=== PATIENT | male | born 1970 | race Caucasian/White ===

== ENCOUNTER → 2022-07-22 | Outpatient (CLI) | payer BC, SELFPAY | END | disposition home or self-care (01) | LOC: SL 20:37 | PROVIDERS: PCP Nurse Practitioner Family; Referring Provider Nurse Practitioner Acute Care; Visit Provider Nurse Practitioner Acute Care | DX: G47.33 Obstructive sleep apnea (adult) (pediatric) (principal) | CPT/HCPCS: 95811 ==

== ENCOUNTER 2022-12-09 16:01 | Emergency (ER) | payer BC, SELFPAY ==
[2022-12-09 16:02] VITALS: BP 162/79; PULSE 101; RESP 16; TEMP 36.1; O2SAT 95; BMI 55.5
--- NOTE | 2022-12-09 16:17 | EDS_ITS ---
HPI <JESS Diamond - Last Filed: 12/09/22 16:23> History of Present Illness Chief Complaint: Abd Pain Narrative Narrative: 52-year-old male states he had an umbilical hernia that popped in and out for years but is becoming more frequent Jayy issue. Earlier today it popped out and felt golf ball sized and he felt nauseated. No vomiting. He is having normal daily to every other day bowel movements. He states that pop back in but he is here for evaluation. He saw surgeon a couple years ago but they would not do surgery without a COVID-vaccine so he declined. PFSH <JESS Diamond - Last Filed: 12/09/22 16:23> [facility] Medical History Abnormal biopsy result Home Medications NK 12/09/22 [History Last Taken Unknown] Allergy/AdvReac Type Severity Reaction Status Date / Time codeine AdvReac Severe Vomiting Verified 12/09/22 16:01 Family History Mother Cancer LUNG Diabetes [facility] acquired PNA Aunt CAD (coronary artery disease) Heart disease Social History adopted: No household members: spouse and other details: sister in law housing: house current occupational status: employed Smoking Status: Never smoker second hand exposure: Yes alcohol intake: former year quit: 1996 substance use type: does not use ROS <JESS Diamond Last Filed: 12/09/22 16:23> ROS ED ROS Narrative Constitutional: Negative for fever, chills, malaise. CVS: Negative for chest pain Respiratory: Negative for shortness of breath. GI: Positive for nausea, abdominal pain. Negative for vomiting, diarrhea, constipation. : Negative for dysuria. EXAM <JESS Diamond - Last Filed: 12/09/22 16:23> Physical Exam Narrative Exam Narrative: CONST: Patient sitting in no acute distress. EYES: Normal inspection. NECK: Normal inspection. RESP: No respiratory distress, CTAB. CVS: Regular rate and rhythm, no murmur, no gallop. ABD: Obese abdomen soft and nontender, no guarding or rebound, nondistended, no palpable hernias, no skin discoloration. SKIN: Color normal, no rash, warm, dry, intact. EXTREMITIES: Normal appearance, no pedal edema. NEURO: Oriented x4. PSYCH: Normal affect. Const Vital Signs: 12/09/22 16:02 Temperature 96.9 F L Temperature Source Temporal Pulse Rate 101 H Respiratory Rate 16 Blood Pressure 162/79 H Blood Pressure Mean 106 Pulse Ox 95 <Dr. Estuardo Peters, - Last Filed: 12/09/22 16:35> Physical Exam Const Vital Signs: 12/09/22 16:02 Temperature 96.9 F L Temperature Source Temporal Pulse Rate 101 H Respiratory Rate 16 Blood Pressure 162/79 H Blood Pressure Mean 106 Pulse Ox 95 [facility] <JESS Diamond - Last Filed: 12/09/22 16:23> [facility] Narrative Medical decision making narrative: Patient has an umbilical hernia that already self reduced. His abdominal exam is benign. He is tolerating p.o. intake and having normal bladder and bowel movements. I do not think acute work-up or imaging is indicated but I provided contact information for general surgery and discussed he will need this hernia repaired electively. I discussed signs of incarcerated hernia that would warrant return to the ER and he was discharged in stable condition. <Dr. Estuardo Peters, - Last Filed: 12/09/22 16:35> [facility] Treatment and Re-Evaluation :: I have personally performed a face to face assessment of the patient and have reviewed the CANDICE Note. I performed a substantive portion of the visit including all aspects of the following. My burris findings include: History: Patient presents with abdominal pain that became worse today. Patient states the pain is over the periumbilical area. Patient states she noted some swelling over the umbilical area. Patient describes her pain as sharp and cramping. Patient states that when he laid down here in the emergency department it resolved. Patient admits to some nausea but denies any vomiting. Patient denies any diarrhea or constipation. Patient denies any back pain. Exam: Vital signs are stable. Patient is afebrile. Patient is in no acute distress. Oral mucosa is pink and moist. Neck is supple. Trachea is midline. There is no JVD or lymphadenopathy. Heart was regular rate and rhythm. Lungs are clear and equal bilateral. Abdomen is soft. Bowel sounds are normal. There is a fascial defect in the umbilical area. There is no mass palpated. There is mild tenderness over this area. There is no rebound or guarding noted. Cranial nerves II through XII are intact. There are no focal motor or sensory deficits noted. Medical Decision Making: Patient was advised that this is an umbilical hernia that may need to be repaired in the future. Patient was advised that there is no need for emergent repair since it is not reduced. Patient will be given referral for general surgery. Patient was instructed to follow-up in 5 to 7 days. Patient instructed return if worse in any way. Patient understood and was agreeable with the plan. All questions were answered. Discharge Plan Triage Chief Complaint: Abd Pain ED Midlevel Provider: Deena Davis ED Provider: Estuardo Peters Dx/Rx/DC Orders Clinical Impression: Hernia, umbilical, Morbid (severe) obesity due to excess calories Instructions: ED Hernia (Adult) Prescriptions: No Action NK Primary Care Provider: Angeles Shelton Referrals: Wil Hernández MD [Med Staff - Active Staff] - Angeles Shetlon [employer] [Primary Care Provider] - Activity Restrictions/Additional Instructions: Avoid heavy lifting or straining. Follow-up with general surgery as this hernia will be repaired electively. If the hernia becomes stuck out or you develop significant pain, vomiting, or cannot have a bowel movement etc. please come back to the ER for evaluation. Disposition Disposition: Home, Self Care
== END 2022-12-09 16:40 | disposition home or self-care (01) ==
PROVIDERS: Emergency Provider Emergency Medicine; PCP Nurse Practitioner Family; Visit Provider Emergency Medicine
DX: K42.9 Umbilical hernia without obstruction or gangrene (principal); E66.01 Morbid (severe) obesity due to excess calories; R11.0 Nausea
CPT/HCPCS: 99282

== ENCOUNTER 2023-01-16 11:09 | Day surgery (SDC) | payer BC, SELFPAY ==
[2023-01-16] MEDS: Lactated Ringers 1,000 ML 15 ML IV (11:52)
[2023-01-16 11:53] VITALS: BP 151/97; PULSE 75; RESP 18; TEMP 36.4; O2SAT 94; BMI 53.1
--- NOTE | 2023-01-16 11:58 | PCM.HP.BLA ---
History and Physical Date of Admission: 01/16/23 Date of Service: 12/27/22 MR#: [id number] Acct: [id number] Name: WILLIAM BLANCO Rep #: [id number] : 1970 Provider: Dr. Wil Hernández MD Age/Sex: 52/M Location: [facility] Status: Signed Intake Vital Signs 12/10/2315:02 12/27/2308:47 Height 6 ft 6 ft Weight: 410 lb 2 oz BMI 55.6 BP 130/73 H Blood Pressure Location Rt brachial Position Sitting Respiration 18 Pulse 81 Pulse Source Monitor Pulse Oximetry (%) 95 Oxygen Delivery Method room air Intake Visit Reasons: UMBILICAL HERNIA ER 12/09 Chief Complaint: er hernia f/u Allergies codeine Adverse Reaction (Severe, Verified 12/27/22 09:48) Vomiting Medications NK 12/09/22 [History Confirmed 12/27/22] PFSH Medical History Abnormal biopsy result Family History [facility] acquired PNAAunt CAD (coronary artery disease) Heart disease Social History adopted: No household members: spouse and other details: sister in law housing: house current occupational status: employed Smoking Status: Never smoker second hand exposure: Yes alcohol intake: former year quit: 1996 substance use type: does not use HPI HPI HPI: Patient is a 52 year old male who presents for evaluation of a umbilical hernia after a visit to the emergency department with the same concern on 12/09/2022. This finding was first noticed by patient 3-4years ago he initially estimates. However, when asked if follow-up if he remembers what happened he states that he is able to recall how this occurred and describes feeling a pain at his umbilicus while working out. His estimates this happened approximately 8 years ago. Since that time he believes that the hernia has grown a little bit. He notes some associated discomfort. He, however, confirms that is has always been reducible. He has seen several ER providers over the years when it becomes particularly uncomfortable. Beyond the above Mr. Blanco reports that he has experienced constipation his entire life He notes that it has not gotten worse, but remained persistently problematic. He states that if I'm edward I have 1 bowel movement every morning , but if I don't 'assist' then Im edward for one in a week. By this he goes on to describe that he regularly uses apple juice or yogurt to try to stimulate a bowel movement. In addition to the above he admits to some bright red blood per rectum and that he has a history of hemorrhoids. He denies any pain or itching with this issue. He estimates that the bleeding has been present for the past 3 years but is rare in frequency and he denies any associated light-headedness or fatigue. He confirms frequent straining and a toilet time average of 20 minutes. He does not routinely supplement his diet with fiber but consumes lots of vegetables with his regular diet. There is no known family history of colon cancer, inflammatory bowel disease, or diverticulitis. Mr. Blanco denies any history of reflux and states that his experience of heartburn is rare in frequency. Mr. Blanco reports that his weight was previously 250 pounds when he got in 2004 and he is simply escalated from there. He notes that he has tried various things to lose weight but none of them seem to work. He is at a loss for explaining things fully as he insists that he does not eat a lot. 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 He does admit to hypothyroidism which is not currently treated because he does not like medication. Patient has no personal history of smoking. Patient has no personal history of recurrent cutaneous infections including staph. Pertinent surgical history includes: None ROS General General: Yes weight change; No appetite, fatigue, colon cancer, breast cancer or weakness HEENT HEENT: No difficulty swallowing, eye injury, eye surgery, swollen glands or hoarseness Endo Endocrine: Yes thyroid disease; No diabetes mellitus, thyroid cancer, Hair loss, heat intolerance or cold intolerance Skin Skin: No rash or changing moles Breast Breast: No left breast lump, right breast lump, nipple discharge, breast pain, abnormal mammogram, abnormal US or breast enlargement Musc Musculoskeletal: Yes back problems; No arthritis, rheumatoid arthritis, gout or joint pain Cardio Cardiovascular: No murmur, pacemaker, heart disease, atrial fibrillation, high blood pressure, heart attack, heart stent, palpitations, shortness of breat with exertion or chest pain Psych Psychiatric: No depression, anxiety or hearing voices Resp Respiratory: No shortness of breath, No sleep apnea, No cough, No COPD, No asthma, No emphysema and No wheezing Gastro Gastrointestinal: No abdominal pain, No nausea or vomiting, No diarrhea, No constipation, No blood in stool, No acid reflux, No hemorrhoids, No ulcers, No gallbladder problem and No black,tarry stools Eddie Hematologic: No blood thinners, No blood disorders, No bleeding, No anemia and No blood clots Neuro Neurologic: No system reviewed and no additional complaints, except as documented, No as per HPI, No abnormal gait, No abnormal hearing, No abnormal movements, No abnormal speech, No behavioral changes, No burning sensations, No confusion, No convulsions, No disequilibrium, No dizziness, No localized weakness, No frequent falls, No headache(s), No lack of coordination, No loss of vision, No memory loss, Yes numbness, No other visual disturbances, No radicular pain, No restless legs, No sensory deficit, No syncope, Yes tingling, No tremor(s), No weakness and No other Exam Const General: cooperative and anxious Orientation: alert, awake and oriented x3 Resp Effort & Inspection: normal respiratory effort GI Other: Morbidly obese, no scars, nondistended, soft, tender to palpation over the umbilicus. Umbilical hernia is palpable but I am unable to clearly discern the diameter of the fascial defect due to patient's habitus and discomfort. I would estimate it to be just over 2 cm Assessment and Plan Assessment and Plan (1) Umbilical hernia without mention of obstruction or gangrene: Status: Acute Comment: Patient presents for evaluation of an umbilical hernia that she states has grown minimally but has been occasionally discomforting. It is reportedly fairly reducible and, indeed, on exam is reducible. Patient's habitus somewhat limits my exam, but I estimate the fascial defect to be 2 cm. While hernia at this size is at some risk for bowel involvement, I have shared with Mr. Cardona that I am reluctant to offer him a hernia repair given his current body weight and BMI greater than 55. At this size his risk for recurrence is quite significant. I have encouraged him to look to options for cardio fitness to try to get back to a lower body weight. Alternatively, I have suggested that he may be a candidate for bariatric surgery. Based on my history I do not find any contraindications for pursuing such a track. Plan: ? Continue watchful waiting for now with encouragement to try to obtain substantial weight loss. Red flag warning signs were provided that should move patient to the nearest emergency room should they be experienced (2) Bright red blood per rectum: Status: Acute Comment: Patient reports 3-year history of bright red blood per rectum. This certainly sounds like it may be related to hemorrhoids, however, patient is 52 years old and has never had colonoscopic evaluation. He also reports a lifelong history of constipation. With this abnormal motility, these reports, in the absence of prior colonoscopy I recommend pursuing the latter. Patient accepts this recommendation and we will plan for 2-day prep in anticipation of the procedure. Plan: Plan will be to complete diagnostic colonoscopy on first mutually agreeable date under local MAC. Pre-procedure prep (2-day) discussed and paper instructions provided. Patient is also made aware that he will need to have a party bus driver with him the day of the procedure. (3) Constipation: Status: Acute Comment: Patient describes lifelong constipation that is not necessarily been exacerbated in recent years. He reports that he has never had a satisfactory explanation as to why he has experienced this difficulty. He wishes to know whether there is always an anatomical cause for this issue. I have described that anatomic causes, physiologic causes, and many times idiopathic causes. Still, given his reports of bright red blood per rectum and the absence of a prior colonoscopy I do recommend proceeding with this exam. Plan: Plan will be to complete diagnostic colonoscopy on first mutually agreeable date under local MAC. Pre-procedure prep (2-day) discussed and paper instructions provided. Patient is also made aware that he will need to have a party bus driver with him the day of the procedure. I have examined the patient and the H&P has been reviewed. There are no clinical changes since date of exam. Patient confirms that he completed bowel prep in anticipation of today's procedure. He states that the accidentally started his fasting a day early. He notes that his output was clear yesterday but he has not had further bowel function today. He states that he was a little bit concerned about this given that he completed his bowel prep this morning. His abdominal exam is benign. Procedure and post procedure expectations were reviewed. We will plan to proceed to the endoscopy suite for screening colonoscopy as discussed above.
[2023-01-16 14:18] VITALS: BP 123/75; BP 151/97; PULSE 74; RESP 14; TEMP 35.6; O2SAT 97
--- NOTE | 2023-01-16 14:29 | OP.COLON_ITS ---
Patient Name: Ryan Mills Procedure Date: 01/16/2023 1:28 PM Date of : 1970 Age: 52 Procedure: Colonoscopy Indications: Rectal bleeding, Chronic idiopathic constipation Providers: Wil Hernández MD Referring MD: Wil Hernández MD Medicines: See the Anesthesia note for documentation of the administered medications Patient Profile: Refer to note in patient chart for documentation of history and physical. Last Colonoscopy: none. The patient's first colonoscopy is today. Complications: No immediate complications. Estimated blood loss: None. Procedure: Pre-Anesthesia Assessment: - The heart rate, respiratory rate, oxygen saturations, blood pressure, adequacy of pulmonary ventilation, and response to care were monitored throughout the procedure. After I obtained informed consent, the scope was passed under direct vision. Throughout the procedure, the patient's blood pressure, pulse, and oxygen saturations were monitored continuously. The adult colonoscope was introduced through the anus and advanced to the cecum, identified by its appearance. The colonoscopy was somewhat difficult due to inadequate bowel prep. Successful completion of the procedure was aided by lavage. The patient tolerated the procedure well. The quality of the bowel preparation was inadequate. Scope In: 1:44:31 PM Scope Withdrawal Time 0 hours 16 minutes 21 seconds Scope Out: 2:12:18 PM Total Procedure Duration Time 0 hours 27 minutes 47 seconds Findings: The perianal and digital rectal examinations were normal. Normal mucosa was found in the sigmoid colon, in the descending colon, in the transverse colon, in the ascending colon and in the cecum. No biopsies or other specimens were collected for this exam. Internal hemorrhoids were found during retroflexion. The hemorrhoids were Grade II (internal hemorrhoids that prolapse but reduce spontaneously). No biopsies or other specimens were collected for this exam. Impression: - Preparation of the colon was inadequate. - Normal mucosa in the sigmoid colon, in the descending colon, in the transverse colon, in the ascending colon and in the cecum. No specimens collected. - Internal hemorrhoids. No specimens collected. Recommendation: - Discharge patient to home (via wheelchair). - Resume regular diet today. - Continue present medications. - Repeat colonoscopy in 10 years for screening purposes. - Telephone my office for study results. Procedure Code(s): --- Professional --- 64326, Colonoscopy, flexible; diagnostic, including collection of specimen(s) by brushing or washing, when performed (separate procedure) Diagnosis Code(s): --- Professional --- K64.1, Second degree hemorrhoids K62.5, Hemorrhage of anus and rectum K59.04, Chronic idiopathic constipation CPT copyright 2021 [employer]. All rights reserved. The codes documented in this report are preliminary and upon rn psych review may be revised to meet current compliance requirements. Wil Hernández MD 01/16/2023 2:28:43 PM This report has been signed electronically. Number of Addenda: 0 Note Initiated On: 01/16/2023 1:28 PM
--- NOTE | 2023-01-16 14:29 | OP.CCLET_ITS ---
01/16/2023 Adan Frank Re : Colonoscopy procedure for Ryan Mills Dear Nikita This procedure was performed on Monday, January 16, 2023. My impressions and recommendations are as follows: Impressions : - Preparation of the colon was inadequate. - Normal mucosa in the sigmoid colon, in the descending colon, in the transverse colon, in the ascending colon and in the cecum. No specimens collected. - Internal hemorrhoids. No specimens collected. Recommendations : - Discharge patient to home (via wheelchair). - Resume regular diet today. - Continue present medications. - Repeat colonoscopy in 10 years for screening purposes. - Telephone my office for study results. My findings are described in the full procedure note, which is enclosed. If I can be of further assistance, please feel free to contact me at Doctor phone number(s): , Work: . Sincerely, Wil Hernández MD 01/16/2023 2:28:43 PM This report has been signed electronically.
[2023-01-16 14:30] VITALS: BP 130/77; BP 151/97; PULSE 68; RESP 18; O2SAT 96
[2023-01-16 14:34] VITALS: BP 133/80; BP 151/97; PULSE 66; RESP 18; TEMP 35.6; O2SAT 97
[2023-01-16 14:47] VITALS: BP 151/97
== END 2023-01-16 15:06 | disposition home or self-care (01) ==
LOC: SDC 11:10 → AC 11:12
PROVIDERS: PCP Nurse Practitioner Family; Referring Provider Surgery; Visit Provider Surgery
PROC: 0DJD8ZZ Inspection of Lower Intestinal Tract, Via Natural or Artificial Opening Endoscopic (ICD-10-PCS; CPT 45378; principal; 2023-01-16 12:25)
DX: K64.1 Second degree hemorrhoids (principal); K62.5 Hemorrhage of anus and rectum; K42.9 Umbilical hernia without obstruction or gangrene; K59.04 Chronic idiopathic constipation; E03.9 Hypothyroidism, unspecified
CPT/HCPCS: 45378; J7120

== ENCOUNTER 2023-03-19 13:19 | Emergency (ER) | payer BC, SELFPAY ==
[2023-03-19 13:22] VITALS: BP 134/83; PULSE 94; RESP 18; TEMP 36.6; O2SAT 94; BMI 50.4
--- NOTE | 2023-03-19 15:29 | EDS_ITS ---
HPI HPI - URI History of Present Illness Chief Complaint: Cold Sx Narrative Narrative: 52-year-old male who denies significant past medical history presents with upper respiratory infection type symptoms that has had for the last 7 days. He states his symptoms began on Monday, where he felt very fatigued and had a cough. He had a fever as high as 101 ?F which has resolved. He also describes body aches, states he spent the first few days of his symptoms in bed. He has had a lingering cough, with mild shortness of breath. He wants to make sure he does not have pneumonia. States he is taking Mucinex and Delsym but still continues to have a cough. He is not a smoker. ROS ROS ED ROS Narrative Constitutional: Resolved fever, no chills. Positive fatigue. HEENT: No sore throat. No neck pain. No loss of vision. No rhinorrhea. Positive nasal congestion. Cardiovascular: No chest pain. No palpitations. No pedal edema. Respiratory: Positive cough, occasional shortness of breath. Abdominal: No abdominal pain. No nausea. No vomiting. Genitourinary: No dysuria. No hematuria. Musculoskeletal: Multiple myalgias and arthralgias. Neurologic: No headaches. No dizziness. No lightheadedness. Skin: No rash. No change in color. Psychiatric: No depression. No anxiety. PFSH PFSH Medical History Abnormal biopsy result (~2005) CPAP (continuous positive airway pressure) dependence Non-smoker Sleep apnea Wears glasses Home Medications prednisone 20 mg tablet 40 mg (2 x 20 mg) PO DAILY #14 tabs 03/19/23 [Rx Last Taken Unknown] Allergy/AdvReac Type Severity Reaction Status Date / Time codeine AdvReac Severe Vomiting Verified 03/19/23 13:21 Family History Mother Cancer LUNG Diabetes [facility] acquired PNA Aunt CAD (coronary artery disease) Heart disease Social History adopted: No household members: spouse and other details: sister in law housing: house current occupational status: employed Smoking Status: Never smoker second hand exposure: Yes alcohol intake: former year quit: 1996 substance use type: does not use EXAM Physical Exam Narrative Exam Narrative: Afebrile. Vital signs noted. Nontoxic-appearing. HEENT: Normocephalic. Atraumatic. PERRL, EOMI. Neck soft and supple. No point tenderness or step off. Mild nasal congestion. Cardiovascular: Regular rate and rhythm. No murmurs, rubs, or gallops appreciated. Respiratory: No tachypnea. Lungs clear to auscultation bilaterally. No wheezing or stridor. Moving a good amount of air. Gastrointestinal: Abdomen soft, obese, nontender, with normoactive bowel sounds. No rebound or guarding. Neurological: Awake. Alert. Nonfocal, nonlateralizing. Skin: No rash. Normal color. No pallor. Musculoskeletal: No pedal edema. Full range of motion extremities. Const Vital Signs: 03/19/23 13:22 03/19/23 15:29 03/19/23 15:53 Temperature 97.8 F Temperature Source Temporal Pulse Rate 94 88 Respiratory Rate 18 18 Respiratory Pattern Normal Normal Blood Pressure 134/83 H Blood Pressure Mean 100 Pulse Ox 94 Oxygen Delivery Method Room Air MDM MDM MDM Narrative Medical decision making narrative: In the differential diagnosis is bronchitis versus pneumonia. I have low suspicion for pulmonary embolism. I do not feel laboratory work is indicated. He will be given an MDI here in the emergency department and the remainder dispensed to him. Chest x-ray in 2 views will also be obtained to rule out pneumonia or pneumothorax. Additionally, I discussed with him the utility of COVID and influenza swabs, but he has been symptomatic for the last week. Additionally, he declines any testing of this nature. Chest x-ray in 2 views was obtained and interpreted by myself independently. I see no evidence of pneumonia or pneumothorax. I do not feel antibiotics are indicated. I reviewed the radiology report which confirms my independent interpretation. At this point in time, I do not feel antibiotics are indicated but I will write him a prescription for prednisone burst for the next 7 days. I feel he be discharged safely home with follow-up and that he does not require observation at this time. Patient and family are agreeable to the plan. Disposition is discharged home in stable condition. History & Record Review Discussion w/independent historian: Patient Additional record(s) reviewed:: Prior ED visit Radiography Diagnostic Testing: Clinical Impression(s) from Imaging Studies Chest X-Ray 03/19/23 15:30 IMPRESSION: No radiographic evidence of acute cardiopulmonary disease. Electronically Signed: Alex Burnette MD at 15:48 EST , Discharge Plan Triage Chief Complaint: Cold Sx ED Provider: David Dotson Dx/Rx/DC Orders Clinical Impression: URI (upper respiratory infection), Bronchitis Instructions: ED Bronchitis, No Antibiotic (Adult), ED URI, Viral, No Abx (Adult) Prescriptions: New prednisone 20 mg tablet 40 mg PO DAILY Qty: 14 0RF Primary Care Provider: Angeles Shelton Referrals: Angeles Shelton, [employer] [Primary Care Provider] - 1 Week if not improving Activity Restrictions/Additional Instructions: Use the albuterol inhaler 1 to 2 puffs inhaled every 4-6 hours as needed for shortness of breath. Follow-up with your primary care provider in the next week if not improving. Disposition Disposition: Home, Self Care
--- NOTE | 2023-03-19 15:30 | RAD_ITS ---
EXAM: XR CHEST, 2 VIEWS CLINICAL INDICATION: COUGH TECHNIQUE: Frontal and lateral views of the chest. COMPARISON: No relevant prior studies available. FINDINGS: LUNGS AND PLEURAL SPACES: Unremarkable. No consolidation or edema. No pneumothorax. No effusion. HEART: Unremarkable. Cardiac silhouette not enlarged. MEDIASTINUM: Central airways and mediastinal contour are unremarkable. BONES/JOINTS: Unremarkable. No acute fracture. SOFT TISSUES: Unremarkable. RAD/Chest PA and Lateral IMPRESSION: No radiographic evidence of acute cardiopulmonary disease. Electronically Signed: Alex Burnette MD at 15:48 EST ,
[2023-03-19] MEDS: Albuterol Sulfate 8 gm Inhaler (60 puffs) 4 PUFF INHALATION (15:45)
[2023-03-19 15:53] VITALS: PULSE 88; RESP 18
== END 2023-03-19 16:27 | disposition home or self-care (01) ==
PROVIDERS: Emergency Provider Emergency Medicine; PCP Nurse Practitioner Family; Visit Provider Emergency Medicine
DX: J40 Bronchitis, not specified as acute or chronic (principal); J06.9 Acute upper respiratory infection, unspecified
CPT/HCPCS: 71046; 94640; 99282

== ENCOUNTER 2024-01-18 22:12 | Observation (INO) | payer BC, SELFPAY ==
[2024-01-18 22:13] VITALS: BP 142/100; PULSE 94; RESP 12; TEMP 36.2; O2SAT 94
--- NOTE | 2024-01-18 22:21 | RAD_ITS ---
INDICATION: chest pain EXAMINATION/TECHNIQUE: X-RAY - XR Chest 2 Views COMPARISON: No relevant prior comparison study available FINDINGS: LINES/DEVICES: None. LUNGS: No consolidation, edema or effusion. No pneumothorax. MEDIASTINUM AND CARDIOVASCULAR STRUCTURES: Cardiac silhouette not enlarged. Central airways and mediastinal contour are unremarkable. BONES AND SOFT TISSUES: Unremarkable. RAD/Chest PA and Lateral IMPRESSION: No radiographic evidence of acute cardiopulmonary disease. Electronically Signed: Alexandra Huynh MD at 23:38 EDT ,
--- NOTE | 2024-01-18 22:21 | EKG12_ITS ---
Test Reason : Blood Pressure : / mmHG Vent. Rate : 088 BPM Atrial Rate : 088 BPM P-R Int : 206 ms QRS Dur : 142 ms QT Int : 392 ms P-R-T Axes : 048 -51 071 degrees QTc Int : 474 ms Normal sinus rhythm Left axis deviation Left ventricular hypertrophy with QRS widening ( R in aVL , Cam product ) Abnormal ECG Confirmed by AMBER DENT MD ([id number]), movie editor CHIP ORELLANA ([id number]) on 01/22/2024 7:28:21 AM Referred By: Confirmed By:AMBER DENT MD
--- NOTE | 2024-01-18 22:30 | CT_ITS ---
INDICATION: fall EXAMINATION: CT CERVICAL SPINE - CT Spine Cervical W/O Contrast Injection TECHNIQUE: Helically acquired images were obtained of the cervical spine. 2D reformatted images were reviewed. The protocol utilizes one or more of the following dose reduction techniques: automated exposure control, adjustment of mA and/or kV according to patient size,and/or use of iterative reconstruction technique. IV Contrast dosage and agent: None. RADIATION DOSAGE (If Supplied By Facility): CTDIvol = ( 47.14 ) mGy, DLP = ( 1268.76 ) mGycm COMPARISON: No relevant prior comparison study available FINDINGS: VERTEBRAE: No fracture or traumatic subluxation. No discrete lytic or blastic abnormality. Normal alignment. Normal craniocervical junction and cervicothoracic junction. DISCS and SPINAL CANAL: Disc heights are preserved. No critical stenosis. NECK SOFT TISSUES: No prevertebral soft tissue swelling. There is no cervical adenopathy. LUNG APICES: Clear. CT/Spine Cervical without Contras IMPRESSION: No evidence of acute cervical spinal fracture or spondylolisthesis. Electronically Signed: Alexandra Huynh MD at 23:31 EDT ,
--- NOTE | 2024-01-18 22:30 | CT_ITS ---
INDICATION: syncope EXAMINATION: CT BRAIN - CT Head or Brain W/O Contrast Injection TECHNIQUE: Multiple axial images were obtained of the head without intravenous contrast. The protocol utilizes one or more of the following dose reduction techniques: automated exposure control, adjustment of mA and/or kV according to patient size,and/or use of iterative reconstruction technique. IV Contrast dosage and agent: None. RADIATION DOSAGE (If Supplied By Facility): CTDIvol = ( 44.99 ) mGy, DLP = ( 950.78 ) mGycm COMPARISON: No relevant prior comparison study available FINDINGS: BRAIN PARENCHYMA: No intra- or extra-axial hemorrhage. No evidence of acute infarct. No intracranial mass or mass effect. There is preservation of the armenta/white matter interface. Posterior fossa structures are unremarkable. CSF SPACES: Appropriate for age. No hydrocephalus. Basal cisterns are patent. CALVARIUM, SKULL BASE, PARANASAL SINUSES AND MASTOID AIR CELLS: Clear. No discrete lytic or blastic abnormalities. ORBITS: Both globes, extraocular muscles, optic nerves and retrobulbar fat appear unremarkable. ASPECTS Score for Acute Strokes: 10 CT/Brain/Head without Contrast IMPRESSION: Negative Brain CT without contrast. Electronically Signed: Alexandra Huynh MD at 23:30 EDT ,
[2024-01-18 22:40] LABS: Absolute Lymphocyte Count 3.06 X10^3/uL (0.83-4.51); Absolute Neutrophil Count 5.9 X10^3/uL (2.0-7.7); Basophil# 0.07 X10^3/uL; Basophil% 0.7 % (0-1); Eosinophil# 0.21 X10^3/uL; Hematocrit 45.4 % (40-54); Hemoglobin 15.3 g/dL (13.0-16.5); Lymphocyte # 3.06 X10^3/ul (0.83-4.51); Lymphocyte % 29.7 % (19-41); Mean Corp Hgb Conc 33.7 g/dL (32-36); Mean Corpuscular Hgb 30.5 pg (27.0-32.0); Mean Corpuscular Volume 90.6 fL (80-94); Monocyte# 0.96 X10^3/uL; Monocyte% 9.3 % (0-10); NRBC Flagged by Analyzer 0 % (0-5); Neutrophil # 5.91 X10^3/uL (2.7-7.7); Neutrophil % 57.4 % (47-70); Platelet Count 204 K/mm3 (150-450); RBC Distribution Width CV 12.1 % (11.6-14.6); RBC Distribution Width SD 39.7 fl (35.1-43.9); Red Blood Count 5.01 M/mm3 (4.6-6.2); White Blood Count 10.3 K/mm3 (4.4-11.0)
--- NOTE | 2024-01-18 22:43 | EX.ED.DYSGE1 ---
HPI History of Present Illness Chief Complaint: Syncope Narrative Narrative: Patient is a 53-year-old male with past medical history of WENDI who presents to the emergency department with a chief complaint of passing out earlier this evening. Patient states that he was coming home from work and noted that he got into the garage seem to have some confusion and was not feeling well he states that he fell he is unsure if he hit his head or not. He states that he is not any blood thinning medications he states that he does not follow with a physician on a regular basis. Patient states that earlier today he felt completely fine and his normal self. He states that he was very sweaty after the episode. Patient's significant other at bedside notes that when he got into the house he was very sweaty covered in sweat thought that it was raining outside. Patient complains of some tightness in his chest. States that he did just vomit as he got here to the emergency department but denies any abdominal pain. Patient states that he has never smoked denies any alcohol use or drug use [facility] Medical History Wears glasses Non-smoker CPAP (continuous positive airway pressure) dependence Sleep apnea Abnormal biopsy result (~2005) Home Medications ?Medication ?Instructions ?Recorded ?Last Taken ?Type NK 01/19/24 Unknown History Allergy/AdvReac Type Severity Reaction Status Date / Time codeine AdvReac Severe Vomiting Verified 01/18/24 22:12 Family History Mother Cancer LUNG Diabetes [facility] acquired PNA Aunt CAD (coronary artery disease) Heart disease Social History adopted: No household members: spouse and other details: sister in law housing: house current occupational status: employed Smoking Status: Never smoker second hand exposure: Yes alcohol intake: former year quit: 1996 substance use type: does not use ROS ROS ED ROS Narrative Constitutional: Denies fevers, chills, headaches, lightness, dizziness Eyes: Denies changes double vision blurry vision Cardiovascular: Complains of chest tightness as noted above denies palpitations Respiratory: Denies coughing wheezing shortness of breath Abdomen: Denies any abdominal pain nausea vomit diarrhea : Denies any urinary symptoms Neurological: Denies numbness, weakness, tingling Musculoskeletal: Denies back pain Skin: Complains of sweating and being hot EXAM Physical Exam Narrative Exam Narrative: General: Patient was lying in bed did appear to be not feeling well overall Head: Atraumatic, normocephalic Eyes: PERRL bilateral, EOMI bilateral, no conjunctival injection noted Neck: Soft, supple, trachea midline, Cardiovascular: Regular rate and rhythm no murmurs gallops rubs noted Respiratory: Clear to auscultation bilaterally no rales rhonchi or wheezes noted Abdomen: Soft, nondistended, no tenderness palpation Extremities: +5/5 strength noted in the bilateral upper and lower extremities, radial pulses +2/4 in the bilateral upper extremities, no pedal edema neuroexam Neurological: Patient is following commands knew that he was at [facility] year is 2023. NIH of 0 GCS 15 Skin: Patient was diaphoretic Const Vital Signs: 01/18/24 22:13 01/18/24 22:21 01/18/24 23:12 Temperature 97.2 F L Temperature Source Oral Pulse Rate 94 77 Respiratory Rate 12 18 Respiratory Effort Respiratory Pattern Blood Pressure 142/100 H 132/88 H Blood Pressure Mean 114 102 Pulse Ox 94 95 Oxygen Delivery Method Room Air Room Air Room Air Oxygen Flow Rate (L/min) 01/18/24 23:27 01/19/24 00:00 01/19/24 01:00 Temperature Temperature Source Pulse Rate 75 72 Respiratory Rate 16 15 Respiratory Effort Normal Respiratory Pattern Normal Blood Pressure 132/89 H 134/98 H Blood Pressure Mean 103 110 Pulse Ox 99 99 Oxygen Delivery Method Nasal Cannula Room Air Oxygen Flow Rate (L/min) 3 01/19/24 01:45 01/19/24 02:00 Temperature 97.8 F Temperature Source Pulse Rate 68 66 Respiratory Rate 18 18 Respiratory Effort Respiratory Pattern Blood Pressure 139/80 H 129/77 H Blood Pressure Mean 99 94 Pulse Ox 100 98 Oxygen Delivery Method Room Air Oxygen Flow Rate (L/min) MDM MDM MDM Narrative Medical decision making narrative: Patient is a 53-year-old male who presented to the emerged part with chief complaint of syncope. Patient will have a workup performed here on the differential diagnose includes but not limited to ACS, pneumonia, hypoglycemia. Once workup is obtained reviewed he will be reevaluated. Patient be given IV fluids and Zofran. Patient CBC reviewed and was largely unremarkable no evidence leukocytosis white blood count normal at 10.3, hemoglobin stable at 15.3, platelet count normal at 204. Patient sodium normal at 139, potassium normal 3.6, creatinine normal at 1.04. Patient's troponin normal at 18 with a delta troponin obtained noted be 28, EKG reviewed and showed sinus rhythm with a rate of 88 bpm. Patient's TSH was elevated to 10.9, free T3 and free T4 were normal at 2.7 and 0.80 respectively drug screen was negative. Patient's chest x-ray was reviewed by myself and by radiology showed no acute cardiopulmonary process. Patient CT head and brain without contrast showed no acute intracranial findings. Patient CT cervical spine showed no acute cervical spine fracture. At this point time do believe the patient will warrant admission for his episode of syncope versus seizure and his diaphoresis. Patient case will be discussed with hospitalist. Discussed case with Dr. Asencio who accept patient for admission. Patient notified he is agreeable this plan all question concerns answered bedside. Lab Data Labs: Laboratory Results - last 24 hr 01/18/24 01/18/24 01/19/24 22:33 23:55 00:49 WBC 10.3 RBC 5.01 Hgb 15.3 Hct 45.4 MCV 90.6 MCH 30.5 MCHC 33.7 RDW Std Deviation 39.7 RDW Coeff of Gregory 12.1 Plt Count 204 MPV 12.0 Immature Gran % (Auto) 0.900 Neut % (Auto) 57.4 Lymph % (Auto) 29.7 [place] % (Auto) 9.3 Eos % (Auto) 2.0 Baso % (Auto) 0.7 Absolute Neuts (auto) 5.9 Absolute Lymphs (auto) 3.06 Nucleated RBC % 0 Sodium 139 Potassium 3.6 Chloride 105 Carbon Dioxide 26.0 Anion Gap 8 BUN 19 H Creatinine 1.04 Est GFR (MDRD) Af Amer 97 Est GFR (MDRD) Non-Af 80 BUN/Creatinine Ratio 18.3 Glucose 156 H Calcium 9.7 Total Bilirubin 0.30 Direct Bilirubin 0.09 AST 22 ALT 43 Alkaline Phosphatase 98 Troponin I High Sens 18 28 Total Protein 7.6 Albumin 4.1 Globulin 3.5 TSH 10.900 H Free T4 0.80 Free T3 pg/dL 2.7 Urine Opiates Screen NEGATIVE Urine Methadone Screen NEGATIVE Ur Barbiturates Screen NEGATIVE Ur Phencyclidine Scrn NEGATIVE Ur Amphetamines Screen NEGATIVE MDMA (Ecstasy) Screen NEGATIVE U Benzodiazepines Scrn NEGATIVE Urine Cocaine Screen NEGATIVE U Cannabinoids Screen NEGATIVE Ur Drug Screen Comment Radiography Diagnostic Testing: Clinical Impression(s) from Imaging Studies Chest X-Ray 01/18/24 22:21 IMPRESSION: No radiographic evidence of acute cardiopulmonary disease. Electronically Signed: Alexandra Huynh MD at 23:38 EDT , Brain CT 01/18/24 22:30 IMPRESSION: Negative Brain CT without contrast. Electronically Signed: Alexandra Huynh MD at 23:30 EDT , Cervical Spine CT 01/18/24 22:30 IMPRESSION: No evidence of acute cervical spinal fracture or spondylolisthesis. Electronically Signed: Alexandra Huynh MD at 23:31 EDT , Discharge Plan Triage Chief Complaint: Syncope ED Provider: Luis E Dye Dx/Rx/DC Orders Clinical Impression: Syncope Primary Care Provider: Angeles Shelton
[2024-01-18] MEDS: Ondansetron 4 MG/2 ML Vial IV (22:47)
[2024-01-18] MEDS: 0.9% Normal Saline (1000mL) 1,000 ML 999 ML IV (22:47)
[2024-01-18 23:12] VITALS: BP 132/88; PULSE 77; RESP 18; O2SAT 95
[2024-01-18 23:18] LABS: AST(SGOT) 22 U/L (15-37); Alanine Aminotransfer ALT/SGPT 43 U/L (16-61); Albumin, Serum 4.1 g/dL (3.2-5.0); Alkaline Phosphatase 98 U/L (45-117); Anion Gap 8 (5-15); BUN 19 mg/dL (7-18); BUN/Creat Ratio 18.3 RATIO (10-20); Bilirubin, Direct 0.09 mg/dL (0.00-0.30); Calcium,Total 9.7 mg/dL (8.5-10.1); Chloride 105 mmol/L (98-107); Creatinine, Serum 1.04 mg/dL (0.70-1.30); EST Glomerular Filtration Rate 80 mL/min (>60); Est Glom Filt Rate - Afr Amer 97 mL/min (>60); Globulin 3.5 g/dL (2.2-4.2); Glucose 156 mg/dL (74-106); Potassium 3.6 mmol/L (3.5-5.1); Protein, Total 7.6 g/dL (6.4-8.2); Sodium Level 139 mmol/L (136-145); Troponin-I HS (w/2H Reflex) 18 pg/mL (3.0-78.0)
[2024-01-19] VITALS (11 sets, daily range): BP systolic 104–148; BP diastolic 64–98; PULSE 64–77; RESP 15–18; TEMP 36.3–36.7; O2SAT 96–100; BMI 56.2; BMI 55.2
--- NOTE | 2024-01-19 00:04 | ED.RN ---
Pt sp02 sropped to 82% while sleeping, pt has hx of sleep apnea with CPAP. Pt placed on 3L
[2024-01-19 00:08] LABS: Free T3 2.7 pg/mL (2.18-3.98)
[2024-01-19 00:37] LABS: Reflex Troponin-HS? (from REC) Y
[2024-01-19 01:02] LABS: Amphetamine Urine VISTA NEGATIVE (<1000 ng/mL); Barbiturate Urine VISTA NEGATIVE (< 200 ng/mL); Benzodiazepine Urine VISTA NEGATIVE (< 200 ng/mL); Cocaine Urine VISTA NEGATIVE (< 300 ng/mL); Ecstacy Urine VISTA NEGATIVE (< 500 ng/mL); Methadone Urine VISTA NEGATIVE (< 300 ng/mL); PCP Urine VISTA NEGATIVE (< 25 ng/mL); THC Urine VISTA NEGATIVE (< 50 ng/mL)
--- NOTE | 2024-01-19 02:10 | PCM.HP.STD ---
[facility] - General General Date of Admission: 01/19/24 Date of Service: 01/19/24 Chief Complaint: Syncope. [facility] Narrative WILLIAM BLANCO, is a 53 M with a past medical history of morbid obesity; with BMI of 56.2 this admission, WENDI; on CPAP, history of sarcoidosis, history of umbilical hernia (2022) and history of BRPR who presents to [facility] ER complaining of syncope. Mr. Blanco reports his symptoms began approximately one hour prior to arrival after he got off from work and then while he was walking through his garage he suddenly began to feel confused and lightheaded with a subsequent syncopal event. He is unsure if he struck his head but he states he was very diaphoretic after the syncopal event with his thinking it was raining outside he was so drenches with sweat. He also admits to a sensation of tightness in his chest followed by nausea and one episode of bilious emesis prior to arrival. He states he felt fine earlier in the day and did not feel sick until this morning. He denies similar previous episodes, tobacco abuse, EtOH use or illicit drug use. In the ER he was diagnosed with Syncope; suspected to be cardiogenic in origin with unremarkable lab tests other than an elevated TSH of 10.9 present on admission along with negative imaging studies and he was then admitted to the PCU under observation status for a stay that is expected to be less than 2 midnights. [facility] Medical History Wears glasses Non-smoker CPAP (continuous positive airway pressure) dependence Sleep apnea Abnormal biopsy result (~2005) Home Medications ?Medication ?Instructions ?Recorded ?Last Taken ?Type NK 01/19/24 Unknown History Allergy/AdvReac Type Severity Reaction Status Date / Time codeine AdvReac Severe Vomiting Verified 01/18/24 22:12 Family History Mother Cancer LUNG Diabetes [facility] acquired PNA Aunt CAD (coronary artery disease) Heart disease Social History adopted: No household members: spouse and other details: sister in law housing: house current occupational status: employed Smoking Status: Never smoker second hand exposure: Yes alcohol intake: former year quit: 1996 substance use type: does not use ROS ROS Narrative Review of Systems: Constitutional: Patient admits to fatigue, generalized weakness and sweats but he denies fever or chills. Eyes: Patient denies changes in vision or discharge from eyes. ENT: Patient denies runny nose, sore throat or ear pain. Resp: Patient admits to cough and KAPLAN. CV: Patient admits to chest pain that was pressure-like followed by syncope. He denies palpitations or heart racing. GI: Patient admits to nausea and vomiting but he denies diarrhea or constipation. : Patient denies dysuria or hematuria. MSK: Patient denies arthralgias or myalgias. Skin: Patient denies rash, wound, abscess or jaundice. Psych: Patient denies symptoms of uncontrolled depression or anxiety. Neuro: Patient admits to increased generalized weakness but he denies headache, paresthesias or focal neurologic weakness. Allergy: Patient denies lip swelling, tongue swelling or urticaria. Hematology: Patient denies easy bleeding or easy bruisability. Endocrinology: Patient denies polyuria, polydipsia and polyphagia. 14 point ROS otherwise negative except for positives noted above in HPI. Vital Signs Vital Signs Vital Signs: 01/18/24 22:13 01/18/24 22:21 01/18/24 23:12 Temperature 97.2 F L Temperature Source Oral Pulse Rate 94 77 Respiratory Rate 12 18 Respiratory Effort Respiratory Pattern Blood Pressure 142/100 H 132/88 H Blood Pressure Mean 114 102 Pulse Ox 94 95 Oxygen Delivery Method Room Air Room Air Room Air Oxygen Flow Rate (L/min) 01/18/24 23:27 01/19/24 00:00 01/19/24 01:00 Temperature Temperature Source Pulse Rate 75 72 Respiratory Rate 16 15 Respiratory Effort Normal Respiratory Pattern Normal Blood Pressure 132/89 H 134/98 H Blood Pressure Mean 103 110 Pulse Ox 99 99 Oxygen Delivery Method Nasal Cannula Room Air Oxygen Flow Rate (L/min) 3 01/19/24 01:45 01/19/24 02:00 Temperature 97.8 F Temperature Source Pulse Rate 68 66 Respiratory Rate 18 18 Respiratory Effort Respiratory Pattern Blood Pressure 139/80 H 129/77 H Blood Pressure Mean 99 94 Pulse Ox 100 98 Oxygen Delivery Method Room Air Oxygen Flow Rate (L/min) Weight Weight: 414 lb 11.032 oz Body Mass Index (BMI) 56.2 Physical Exam Const alert, oriented x3 and no apparent distress Constitutional Narrative: Morbidly obese. General Appearance: cooperative HEENT normocephalic, head/scalp atraumatic, hearing grossly normal bilaterally and moist oral mucous membranes Eyes PERRL and EOMs intact bilaterally Neck no lymphadenopathy and supple Resp normal respiratory effort, no retractions, no use of accessory muscles and clear to auscultation bilaterally Cardio regular rate and regular rhythm GI normal to inspection, nondistended, normoactive bowel sounds, soft to palpation, non-tender and non-distended GI Narrative: Morbidly obese. Extremity normal to inspection and full ROM Skin Skin Narrative: Patient has no evidence of rash, abscess or jaundice. Neuro oriented x3, CN's II-XII intact bilaterally, moves all extremities and no focal motor deficits Sensorium / Orientation: awake, alert, oriented to person, oriented to place and oriented to time Speech: speech normal Psych affect normal Results Medical Records Data Attestation: I reviewed the patient's medical records Lab / Micro Data Attestation: I reviewed the patient's lab results. 01/19/24 04:39 01/19/24 04:39 Labs: Laboratory Results - last 24 hr 01/18/24 22:33: WBC 10.3, RBC 5.01, Hgb 15.3, Hct 45.4, MCV 90.6, MCH 30.5, MCHC 33.7, RDW Std Deviation 39.7, RDW Coeff of Gregory 12.1, Plt Count 204, MPV 12.0, Immature Gran % (Auto) 0.900, Neut % (Auto) 57.4, Lymph % (Auto) 29.7, Coffee % (Auto) 9.3, Eos % (Auto) 2.0, Baso % (Auto) 0.7, Absolute Neuts (auto) 5.9, Absolute Lymphs (auto) 3.06, Nucleated RBC % 0, Sodium 139, Potassium 3.6, Chloride 105, Carbon Dioxide 26.0, Anion Gap 8, BUN 19 H, Creatinine 1.04, Est GFR (MDRD) Af Amer 97, Est GFR (MDRD) Non-Af 80, BUN/Creatinine Ratio 18.3, Glucose 156 H, Calcium 9.7, Total Bilirubin 0.30, Direct Bilirubin 0.09, AST 22, ALT 43, Alkaline Phosphatase 98, Troponin I High Sens 18, Total Protein 7.6, Albumin 4.1, Globulin 3.5, TSH 10.900 H, Free T4 0.80, Free T3 pg/dL 2.7 01/18/24 23:55: Urine Opiates Screen NEGATIVE, Urine Methadone Screen NEGATIVE, Ur Barbiturates Screen NEGATIVE, Ur Phencyclidine Scrn NEGATIVE, Ur Amphetamines Screen NEGATIVE, MDMA (Ecstasy) Screen NEGATIVE, U Benzodiazepines Scrn NEGATIVE, Urine Cocaine Screen NEGATIVE, U Cannabinoids Screen NEGATIVE, Ur Drug Screen Comment 01/19/24 00:49: Troponin I High Sens 28 Imaging Radiology Impression Chest X-Ray 01/18/24 22:21 IMPRESSION: No radiographic evidence of acute cardiopulmonary disease. Electronically Signed: Alexandra Huynh MD at 23:38 EDT Reading Location ID and State: [facility] / [place] Tel , Service support , Brain CT 01/18/24 22:30 IMPRESSION: Negative Brain CT without contrast. Electronically Signed: Alexandra Huynh MD at 23:30 EDT Reading Location ID and State: [facility] / [place] Tel , Service support , Cervical Spine CT 01/18/24 22:30 IMPRESSION: No evidence of acute cervical spinal fracture or spondylolisthesis. Electronically Signed: Alexandra Huynh MD at 23:31 EDT Reading Location ID and State: [facility] / [place] Tel , Service support , Assessment & Plan Assessment/Plan (1) Syncope: QUALIFIERS: Syncope type: unspecified Qualified Code(s): R55 - Syncope and collapse (2) Chest tightness: (3) Nausea and vomiting: QUALIFIERS: Vomiting type: unspecified Qualified Code(s): R11.2 - Nausea with vomiting, unspecified (4) Diaphoresis: (5) Morbid (severe) obesity due to excess calories: (6) WENDI (obstructive sleep apnea): PLAN: Plan 1. Syncope; suspected to be cardiogenic in origin with severe diaphoresis, chest tightness and nausea with vomiting suggesting underlying ischemia - Admit to PCU under observation status and give volume resuscitation. Serialize troponin. Check echocardiogram to evaluate LVEF. Check carotid doppler to evaluate for stenosis. Check Lexiscan NST to evaluate for potential underlying ischemia. Give Tylenol prn pain or fever. 2. Morbid obesity; with BMI of 56.2 this admission plus WENDI complicating #1 - Weight loss will be recommended. Resume Nocturnal CPAP. 3. TSH of 10.9 present on admission compounding #1 & #2 - Start Synthroid 25 mcg po daily and then recheck TSH in 4-6 weeks. 4. History of sarcoidosis - Stable. 5. History of umbilical hernia (2022) - Noted. 6. History of BRBPR - Noted with no signs of recurrence. 7. DVT prophylaxis - Lovenox 40 mg sq BID. Total time: Approximately 70 minutes. Charges/Coding Visit Charges OBSV E&M: 80215 Observ/hosp same date L2
--- NOTE | 2024-01-19 04:15 | CDU_ITS ---
Reason For Study: Evaluate For Stenosis Rt. Velocities/BP Lt. Velocities/BP Prox CCA 80/22 cm/sec. Prox CCA 107/23 cm/sec. Mid CCA 83/18 cm/sec. Mid CCA 78/26 cm/sec. Dist CCA 87/24 cm/sec. Dist CCA 74/31 cm/sec. Prox ICA 78/29 cm/sec. Prox ICA 84/28 cm/sec. Mid ICA 75/29 cm/sec. Mid ICA 78/28 cm/sec. Dist ICA 123/51 cm/sec. Dist ICA 92/34 cm/sec. Rt. ICA/CCA = 1.5. Lt. ICA/CCA = 1.2. Prox ECA 87/15 cm/sec. Prox ECA 102/12 cm/sec. Rt. Vert. 56/19 cm/sec. Lt. Vert. 64/20 cm/sec. Right Extracranial There is no significant atherosclerotic plaque noted in the right common carotid artery. There is no significant atherosclerotic plaque noted in the right internal carotid artery. There is intimal thickening but no significant atherosclerotic plaque noted in the right external carotid artery. Antegrade flow is noted in the right vertebral artery. Left Extracranial There is intimal thickening but no significant atherosclerotic plaque noted in the left common carotid artery. There is intimal thickening but no significant atherosclerotic plaque noted in the left internal carotid artery. There is intimal thickening but no significant atherosclerotic plaque noted in the left external carotid artery. Antegrade flow is noted in the left vertebral artery. Procedure Carotid Duplex 36725. This is a Carotid Duplex examination using B-mode, color flow and specral Doppler. Exam performed portable in patient room. VL/Carotid Duplex Ultrasound Interpretation Summary No significant atherosclerotic plaque or stenosis noted in the internal carotid arteries bilaterally. Flow within the vertebral arteries is antegrade bilaterally. Ordering Physician: Scot Epps Referring Physician: Angeles Shelton Performed By: Katarzyna Queen, JULIETTE, RVT
--- NOTE | 2024-01-19 04:15 | ECHOCS_ITS ---
Reason For Study: SYNCOPE Procedure This was a 2D Doppler, Color Flow transthoracic echocardiogram. The study was technically difficult. Contrast injection was performed. Exam performed portable in patient room. Left Ventricle Normal LV size. Moderate concentric left ventricular hypertrophy. The estimated ejection fraction is 50 %. Left ventricular systolic function is lower limits of normal. Normal diastololic function. Right Ventricle Normal RV size. Normal systolic function. Atria The left atrium is mildly enlarged. Normal right atrium. Mitral Valve The mitral valve is structurally normal. No prolapse or stenosis seen. Tricuspid Valve Normal tricuspid valve. Unable to estimate RV systolic pressure due to insufficient tricuspid regurgitant envelope. Aortic Valve Trisinus/trileaflet aortic valve. Pulmonic Valve Normal pulmonic valve. Trivial pulmonic valve insufficiency. Great Vessels Normal aortic root. Pericardium/Pleural No pericardial effusion. Medication Diluted definity 3ml given slow IV push to enhance endocardial definition. MMode/2D Measurements & Calculations LVIDd: 4.5 cm IVSd: 1.5 cm LVOT diam: 2.3 cm LVIDs: 3.2 cm LVPWd: 1.2 cm FS: 29.7 % LVOT area: 4.0 cm2 asc Aorta Diam: 3.2 cm LAV(MOD-bp): 70.7 ml LVAd ap4: 37.6 cm2 LAV(MOD-bp) Indexed: 24.4 ml/m2 LVLd ap4: 8.8 cm LAV(MOD-sp2): 57.5 ml EDV(MOD-sp4): 128.5 ml LAV(MOD-sp4): 79.0 ml EDV(sp4-el): 136.2 ml LVAs ap4: 26.1 cm2 LVLs ap4: 8.1 cm ESV(MOD-sp4): 67.3 ml ESV(sp4-el): 71.7 ml EF(MOD-sp4): 47.6 % EF(sp4-el): 47.4 % LVAd ap2: 45.0 cm2 SV(MOD-sp4): 61.2 ml SV(MOD-sp2): 78.8 ml LVLd ap2: 9.1 cm EDV(MOD-sp2): 175.2 ml EDV(sp2-el): 187.9 ml LVAs ap2: 31.4 cm2 LVLs ap2: 8.1 cm ESV(MOD-sp2): 96.5 ml ESV(sp2-el): 103.2 ml EF(MOD-sp2): 44.9 % SV(sp4-el): 64.5 ml Ao sinus diam: 3.4 cm LA A4 area: 23.9 cm2 LA dimension(2D): 3.3 cm RA A4 area: 12.9 cm2 Time Measurements MV dec time: 0.25 sec Doppler Measurements & Calculations MV E max daniel: 79.0 cm/sec Lat Peak E' Daniel: 9.4 cm/sec Med Peak E' Daniel: 6.9 cm/sec MV A max daniel: 81.6 cm/sec E/E' lat: 8.4 E/E' med: 11.4 MV E/A: 0.97 Ao V2 max: 131.1 cm/sec LV V1 max: 110.3 cm/sec MV dec slope: 312.3 cm/sec2 Ao max P.9 mmHg LV V1 max P.9 mmHg Ao V2 mean: 97.9 cm/sec LV V1 mean P.3 mmHg Ao mean P.2 mmHg LV V1 mean: 89.5 cm/sec Ao V2 VTI: 26.0 cm LV V1 VTI: 23.2 cm AV (velocity ratio): 0.89 GREG(I,D): 3.6 cm2 GREG(V,D): 3.3 cm2 SV(LVOT): 92.5 ml PA V2 max: 73.6 cm/sec PA max PG (full): 0.87 mmHg ECHO/Echo Complete W/ Contrast Interpretation Summary The estimated ejection fraction is 50 %. Moderate concentric left ventricular hypertrophy. The left atrium is mildly enlarged. Structually normal valves. The study was technically difficult. Contrast injection was performed. Ordering Physician: Scot Epps Performed By: Nae Sims RDCS
[2024-01-19] MEDS: 0.9% Normal Saline (1000mL) 1,000 ML 100 ML IV (04:46)
[2024-01-19] MEDS: 0.9% Saline Lock 10 ML Syringe IV (04:47)
[2024-01-19 05:03] LABS: Absolute Lymphocyte Count 1.62 X10^3/uL (0.83-4.51); Absolute Neutrophil Count 6.8 X10^3/uL (2.0-7.7); Basophil# 0.05 X10^3/uL; Basophil% 0.5 % (0-1); Eosinophil# 0.06 X10^3/uL; Eosinophils% 0.7 % (0-5); Hemoglobin 14.1 g/dL (13.0-16.5); Lymphocyte # 1.62 X10^3/ul (0.83-4.51); Lymphocyte % 17.6 % (19-41); Mean Corpuscular Hgb 29.7 pg (27.0-32.0); Mean Corpuscular Volume 92.6 fL (80-94); Mean Platelet Vol. 11.9 fl (6.2-12.0); Monocyte# 0.56 X10^3/uL; Monocyte% 6.1 % (0-10); NRBC Flagged by Analyzer 0 % (0-5); Neutrophil # 6.83 X10^3/uL (2.7-7.7); Neutrophil % 74.3 % (47-70); Platelet Count 186 K/mm3 (150-450); RBC Distribution Width CV 12.1 % (11.6-14.6); RBC Distribution Width SD 41.6 fl (35.1-43.9); Red Blood Count 4.75 M/mm3 (4.6-6.2); White Blood Count 9.2 K/mm3 (4.4-11.0)
[2024-01-19] MEDS: Levothyroxine 25 MCG TABLET PO (05:07)
[2024-01-19 05:59] LABS: Chloride 106 mmol/L (98-107); Magnesium 2.2 mg/dL (1.6-2.6); Phosphorus 4.1 mg/dL (2.5-4.9)
[2024-01-19] MEDS: Enoxaparin 40 MG/0.4 ML Syringe SC (09:03)
[2024-01-19 11:04] LABS: Troponin-I HS < 3 pg/mL (3.0-78.0)
[2024-01-19 11:32] LABS: Cholesterol 206 mg/dL (200); High Density Lipoprotein 80 mg/dL; Triglycerides 83 mg/dL; Troponin-I HS 6 pg/mL (3.0-78.0); Very Low Density Lipoprotein 17 mg/dL (5-40)
[2024-01-19 11:33] LABS: ALB/GLOB Ratio 0.9 RATIO (0.9-2.4); AST(SGOT) 13 U/L (15-37); Alanine Aminotransfer ALT/SGPT 24 U/L (16-61); Alkaline Phosphatase 96 U/L (45-117); Anion Gap 6 (5-15); BUN 13 mg/dL (7-18); BUN/Creat Ratio 16.9 RATIO (10-20); Calcium,Total 9.7 mg/dL (8.5-10.1); Creatinine, Serum 0.77 mg/dL (0.70-1.30); EST Glomerular Filtration Rate 113 mL/min (>60); Est Glom Filt Rate - Afr Amer 137 mL/min (>60); Estimated Creatinine Clearance 193.41 ml/min; Globulin 4.3 g/dL (2.2-4.2); Glucose 98 mg/dL (74-106); Protein, Total 8.3 g/dL (6.4-8.2); Sodium Level 137 mmol/L (136-145)
[2024-01-19] MEDS: Acetaminophen 325 MG Tablet 650 MG PO (12:57)
--- NOTE | 2024-01-19 17:35 | DCINST_ITS ---
Discharge Instructions Diet Discharge Diet: 2400 Calorie Control Diet Activity Discharge Activity: Return to Normal Activity Dressing / Incision Call your doctor if you observe: Fever of 101 or Higher, Shortness of breath, Dizziness, Fainting spells, Swelling in the ankles, Chest pain and Increased palpitations (irregular heartbeat) Follow Up Care Test Results: Test results from this visit will be discussed in further detail at your follow- up appointment, if applicable. Discharge Plan Admission Admit Date/Time: 01/19/24 03:40 Attending Provider: Guevara Chandra Primary Care Provider: Angeles Shelton Consulting Providers: Scot Epps Instructions Additional Instructions / Restrictions: Obtain a referral from your PCP for contaminated land consultant and dietitian consult. Also considered like we talked about obtaining mental health consult with a therapist. Discharge Orders/Prescriptions Prescriptions: No Action NK Referrals / Follow Up: Angeles Shelton, CHIEF LIFESTYLE OFFICER-C [Primary Care Provider] - Disposition Disposition (needs filled in before D/C Order can be placed): Home, Self Care
--- NOTE | 2024-01-19 17:37 | PCM.DC.SUM ---
Providers Date of Admission: 01/19/24 Primary Care Physician: Angeles Shelton NP-C Reason For Visit: SYNCOPE, DIAPHORESIS & CHEST PAIN Diagnosis Discharge Diagnosis (1) Syncope: Status: Acute Code(s): R55 - Syncope and collapse Qualifiers: Syncope type: unspecified Qualified Code(s): R55 - Syncope and collapse (2) Chest tightness: Status: Acute Code(s): R07.89 - Other chest pain (3) Nausea and vomiting: Status: Acute Code(s): R11.2 - Nausea with vomiting, unspecified Qualifiers: Vomiting type: unspecified Qualified Code(s): R11.2 - Nausea with vomiting, unspecified (4) Diaphoresis: Status: Acute Code(s): R61 - Generalized hyperhidrosis (5) Morbid (severe) obesity due to excess calories: Status: Acute Code(s): E66.01 - Morbid (severe) obesity due to excess calories (6) WENDI (obstructive sleep apnea): Status: Acute Code(s): G47.33 - Obstructive sleep apnea (adult) (pediatric) Medications at Discharge Home Medications NK 01/19/24 Hospital Course Operations None Procedures 2-D Echocardiogram Summary of Care Provided Minutes Spent on Discharge: 32 Hospital Course: Per HPI: WILLIAM BLANCO, is a 53 M with a past medical history of morbid obesity; with BMI of 56.2 this admission, WENDI; on CPAP, history of sarcoidosis, history of umbilical hernia (2022) and history of BRPR who presents to [facility] ER complaining of syncope. Mr. Blanco reports his symptoms began approximately one hour prior to arrival after he got off from work and then while he was walking through his garage he suddenly began to feel confused and lightheaded with a subsequent syncopal event. He is unsure if he struck his head but he states he was very diaphoretic after the syncopal event with his thinking it was raining outside he was so drenches with sweat. He also admits to a sensation of tightness in his chest followed by nausea and one episode of bilious emesis prior to arrival. He states he felt fine earlier in the day and did not feel sick until this morning. He denies similar previous episodes, tobacco abuse, EtOH use or illicit drug use. In the ER he was diagnosed with Syncope; suspected to be cardiogenic in origin with unremarkable lab tests other than an elevated TSH of 10.9 present on admission along with negative imaging studies and he was then admitted to the PCU under observation status for a stay that is expected to be less than 2 midnights. Hospital Course: 1. Syncope?53-year-old male who is morbidly obese presents to the hospital with syncope. Echocardiogram was unremarkable other than concentric hypertrophy without any diastolic or systolic dysfunction. Carotid duplex has not been read yet however in the setting of syncope it is not an always necessary test. Troponins were unremarkable, lab work was all normal and telemetry has been stable since admission. He denies any type of symptoms including palpitations or history of arrhythmias prior to this event. His description of the event is not consistent with a seizure. Orthostatic vital signs were unremarkable. He was receiving IV fluids during his admission and he states that he feels back to baseline. Denies any chest pain, he has been up and ambulating around the room and has not had any repeat syncope or lightheadedness. I discussed with him and his the plan for discharge today they both expressed understanding the risk benefits of going home and would like to go home today. 2. Morbid obesity?had a 50-minute conversation with him and his on weight loss including appropriate dietary habits as well as exercise. I do recommend that he follow-up with his PCP to obtain a referral to dietitian/pattern filer for further education. Physical Exam Narrative General: Alert, Oriented x3, Cooperative, No apparent distress, morbidly obese HEENT: Atraumatic, PERRLA, EOMI, Normocephalic Oral: Moist Mucosa Neck: Supple, No JVD Lungs: Diminished due to body habitus, Normal air movement, No rhonchi, No wheeze, No rales Cardiovascular: Regular rate, Regular Rhythm, Normal S1, Normal S2, No murmurs, sounds distant due to body habitus Abdomen: Soft, Non Tender, Non-Distended, No Hepato-splenomegaly Extremities: No edema, Capillary Refill Less than 3 Seconds Skin: No rashes, No breakdown Musculoskeletal: No Tenderness to Palpation of Joints or Extremities Neurological: No focal neurological deficits, Motor Exam 5/5 strength throughout, Sensory exam intact to light touch and pain Psych/Mental Status: Normal Affect, Appropriate Weight / BMI Weight Weight: 407 lb 6.628 oz Body Mass Index (BMI) 55.2 ABG / Lab / Microbiology Data 01/19/24 04:39 01/19/24 04:39 Laboratory: Laboratory Results - last 24 hr 01/18/24 22:33: WBC 10.3, RBC 5.01, Hgb 15.3, Hct 45.4, MCV 90.6, MCH 30.5, MCHC 33.7, RDW Std Deviation 39.7, RDW Coeff of Gregory 12.1, Plt Count 204, MPV 12.0, Immature Gran % (Auto) 0.900, Neut % (Auto) 57.4, Lymph % (Auto) 29.7, [place] % (Auto) 9.3, Eos % (Auto) 2.0, Baso % (Auto) 0.7, Absolute Neuts (auto) 5.9, Absolute Lymphs (auto) 3.06, Nucleated RBC % 0, Sodium 139, Potassium 3.6, Chloride 105, Carbon Dioxide 26.0, Anion Gap 8, BUN 19 H, Creatinine 1.04, Est GFR (MDRD) Af Amer 97, Est GFR (MDRD) Non-Af 80, BUN/Creatinine Ratio 18.3, Glucose 156 H, Calcium 9.7, Total Bilirubin 0.30, Direct Bilirubin 0.09, AST 22, ALT 43, Alkaline Phosphatase 98, Troponin I High Sens 18, Total Protein 7.6, Albumin 4.1, Globulin 3.5, TSH 10.900 H, Free T4 0.80, Free T3 pg/dL 2.7 01/18/24 23:55: Urine Opiates Screen NEGATIVE, Urine Methadone Screen NEGATIVE, Ur Barbiturates Screen NEGATIVE, Ur Phencyclidine Scrn NEGATIVE, Ur Amphetamines Screen NEGATIVE, MDMA (Ecstasy) Screen NEGATIVE, U Benzodiazepines Scrn NEGATIVE, Urine Cocaine Screen NEGATIVE, U Cannabinoids Screen NEGATIVE, Ur Drug Screen Comment 01/19/24 00:49: Troponin I High Sens < 3 L 01/19/24 04:39: WBC 9.2, RBC 4.75, Hgb 14.1, Hct 44.0, MCV 92.6, MCH 29.7, MCHC 32.0 D, RDW Std Deviation 41.6, RDW Coeff of Gregory 12.1, Plt Count 186, MPV 11.9, Immature Gran % (Auto) 0.800, Neut % (Auto) 74.3 H, Lymph % (Auto) 17.6 L, [place] % (Auto) 6.1, Eos % (Auto) 0.7, Baso % (Auto) 0.5, Absolute Neuts (auto) 6.8, Absolute Lymphs (auto) 1.62, Nucleated RBC % 0, Sodium 137, Potassium 4.0, Chloride 106, Carbon Dioxide 25.0, Anion Gap 6, BUN 13, Creatinine 0.77, Estim Creat Clear Calc 193.41, Est GFR (MDRD) Af Amer 137, Est GFR (MDRD) Non-Af 113, BUN/Creatinine Ratio 16.9, Glucose 98, Calcium 9.7, Phosphorus 4.1, Magnesium 2.2, Total Bilirubin 0.40, AST 13 L, ALT 24, Alkaline Phosphatase 96, Troponin I High Sens 6, Total Protein 8.3 H, Albumin 4.0, Globulin 4.3 H, Albumin/Globulin Ratio 0.9, Triglycerides 83, Cholesterol 206 H, LDL Cholesterol 109, VLDL Cholesterol 17, HDL Cholesterol 80 Radiography Diagnostic Testing: Radiology Impression Chest X-Ray 01/18/24 22:21 IMPRESSION: No radiographic evidence of acute cardiopulmonary disease. Electronically Signed: Alexandra Huynh MD at 23:38 EDT Reading Location ID and State: [facility] / [place] Tel , Service support , Brain CT 01/18/24 22:30 IMPRESSION: Negative Brain CT without contrast. Electronically Signed: Alexandra Huynh MD at 23:30 EDT , Cervical Spine CT 01/18/24 22:30 IMPRESSION: No evidence of acute cervical spinal fracture or spondylolisthesis. Electronically Signed: Alexandra Huynh MD at 23:31 EDT , Echocardiogram 01/19/24 04:15 Interpretation Summary The estimated ejection fraction is 50 %. Moderate concentric left ventricular hypertrophy. The left atrium is mildly enlarged. Structually normal valves. The study was technically difficult. Contrast injection was performed. Ordering Physician: Scot Epps Performed By: Nae Sims RDCS D/C Instructions Discharge Diet: 2400 Calorie Control Diet Call your doctor if you observe: Fever of 101 or Higher, Shortness of breath, Dizziness, Fainting spells, Swelling in the ankles, Chest pain and Increased palpitations (irregular heartbeat) Meaningful Use Info Meaningful Use Meaningful Use Diagnoses (Choose all that apply): None applicable Ischemic Stroke Statin Dosing Therapy Reference: STATIN DOSE THERAPY REFERENCE: * Patients > 75 years receive moderate or high dose statin therapy. * Patients 75 years or YOUNGER should receive HIGH intensity statin dose unless contraindicated. You will be required to document reason for non-treatment if statin daily dose does not meet guidelines. HIGH DOSE STATIN THERAPY DAILY Atorvastatin > than or = to 40 mg Rosuvastatin > than or = to 20 mg Amlodipine + Atorvastatin > than or = to 2.5/40 mg Ezetimibe + Simvastatin 10/80 mg Simvastatin 80mg Discharge Plan Admission Admit Date/Time: 01/19/24 03:40 Attending Provider: Guevara Chandra Primary Care Provider: Angeles Shelton Consulting Providers: Scot Epps Instructions Additional Instructions / Restrictions: Obtain a referral from your PCP for pattern filer and dietitian consult. Also considered like we talked about obtaining mental health consult with a therapist. Discharge Orders/Prescriptions Prescriptions: No Action NK Referrals / Follow Up: Angeles Shelton, JOSE-C [Primary Care Provider] - Disposition Disposition (needs filled in before D/C Order can be placed): Home, Self Care Charges/Coding Visit Charges Inpatient E&M: 69491 Disch Hosp >30min
[2024-01-20 06:04] LABS: Vista UDS pH Range 6
== END 2024-01-19 18:01 | disposition home or self-care (01) ==
LOC: ED 22:33 → PCU 01-19 03:48
PROVIDERS: Admitting Provider Internal Medicine; Emergency Provider Emergency Medicine; PCP Nurse Practitioner Family; Visit Provider Family Medicine
DX: R55 Syncope and collapse (principal); E66.01 Morbid (severe) obesity due to excess calories; Z68.43 Body mass index [BMI] 50.0-59.9, adult; G47.33 Obstructive sleep apnea (adult) (pediatric); R07.89 Other chest pain; R42 Dizziness and giddiness; R11.2 Nausea with vomiting, unspecified
CPT/HCPCS: 99284; 36415; 70450; 71046; 72125; 80048; 80053; 80061; 80076; 80307; 83735; 84100; 84439; 84443; 84481; 84484; 85025; 93005; 93306; 93880; 96361; 96372; 96374; 99221; J7030; Q9957; A4216; C8929; G0378; J2405

== ENCOUNTER 2024-03-29 15:46 | Emergency (ER) | payer BC, SELFPAY ==
[2024-03-29 15:46] VITALS: BP 164/87; PULSE 75; RESP 16; TEMP 36.6; O2SAT 98; BMI 53.8
--- NOTE | 2024-03-29 15:54 | EKG12_ITS ---
Test Reason : Blood Pressure : */* mmHG Vent. Rate : 80 BPM Atrial Rate : 80 BPM P-R Int : 182 ms QRS Dur : 128 ms QT Int : 378 ms P-R-T Axes : 39 -55 76 degrees QTcB Int : 435 ms Normal sinus rhythm Left axis deviation Left ventricular hypertrophy with QRS widening and repolarization abnormality ( R in aVL , Cam pr oduct ) Cannot rule out Septal infarct , age undetermined Abnormal ECG Confirmed by Wil Daley ([id number]), content editor MANDO MORGAN ([id number]) on 04/01/2024 9:07:25 AM Referred By: Confirmed By: Wil Daley
[2024-03-29 18:23] LABS: Absolute Lymphocyte Count 2.31 X10^3/uL (0.83-4.51); Absolute Neutrophil Count 6.9 X10^3/uL (2.0-7.7); Basophil# 0.04 X10^3/uL; Basophil% 0.4 % (0-1); Eosinophil# 0.14 X10^3/uL; Eosinophils% 1.4 % (0-5); Hemoglobin 14.3 g/dL (13.0-16.5); Lymphocyte # 2.31 X10^3/ul (0.83-4.51); Lymphocyte % 22.6 % (19-41); Mean Corp Hgb Conc 32.5 g/dL (32-36); Mean Corpuscular Hgb 29.6 pg (27.0-32.0); Mean Corpuscular Volume 91.1 fL (80-94); Mean Platelet Vol. 11.3 fl (6.2-12.0); Monocyte# 0.81 X10^3/uL; Monocyte% 7.9 % (0-10); NRBC Flagged by Analyzer 0 % (0-5); Neutrophil # 6.88 X10^3/uL (2.7-7.7); Neutrophil % 67.3 % (47-70); Platelet Count 225 K/mm3 (150-450); RBC Distribution Width CV 11.9 % (11.6-14.6); RBC Distribution Width SD 39.8 fl (35.1-43.9); Red Blood Count 4.83 M/mm3 (4.6-6.2); White Blood Count 10.2 K/mm3 (4.4-11.0)
[2024-03-29 18:34] LABS: Bacteria 0 SEEN /hpf (None Seen); Mucous, Urine 0 SEEN /hpf (<or=2+); Red Blood Cells-Urine 0 SEEN /hpf (0-5)
[2024-03-29 18:40] LABS: Color, Urine Straw (Yellow); Glucose, Dipstick Normal (Normal); Ketone-Dipstick Negative (Negative); Leukocyte Esterase-Dipstick Negative /ul (Negative); Nitrite-Dipstick Negative (Negative); Occult Blood-Urine 10 /ul (Negative); Protein-Dipstick Negative (Negative); Urine Bilirubin Dipstick Negative (Negative); Urine Clarity Clear (Clear); Urine Urobilinogen Normal (Normal)
[2024-03-29 18:52] LABS: Squamous Epithelial Cells - UA 0-5 SEEN /hpf (0-5); White Blood Cells 0-5 SEEN /hpf (0-5)
[2024-03-29 19:00] VITALS: BP 155/65; PULSE 68; RESP 18; O2SAT 98
[2024-03-29 19:04] LABS: ALB/GLOB Ratio 1.2 RATIO (0.9-2.4); AST(SGOT) 16 U/L (15-37); Alanine Aminotransfer ALT/SGPT 36 U/L (16-61); Albumin, Serum 3.9 g/dL (3.2-5.0); Alkaline Phosphatase 86 U/L (45-117); Anion Gap 5 (5-15); BUN 10 mg/dL (7-18); BUN/Creat Ratio 10.2 RATIO (10-20); Calcium,Total 9.7 mg/dL (8.5-10.1); Chloride 105 mmol/L (98-107); Creatinine, Serum 0.98 mg/dL (0.70-1.30); EST Glomerular Filtration Rate 86 mL/min (>60); Est Glom Filt Rate - Afr Amer 104 mL/min (>60); Globulin 3.3 g/dL (2.2-4.2); Glucose 109 mg/dL (74-106); Potassium 4.5 mmol/L (3.5-5.1); Protein, Total 7.2 g/dL (6.4-8.2); Sodium Level 139 mmol/L (136-145)
--- NOTE | 2024-03-29 20:18 | CT_ITS ---
STUDY: CT ABDOMEN AND PELVIS WITH CONTRAST REASON FOR EXAM: Male, 53 years old. left side abd pain RADIATION DOSAGE (If Supplied By Facility): CTDIvol = ( 46.84 ) mGy, DLP = ( 1869.51 ) mGycm TECHNIQUE: Transaxial images were obtained from the dome of the diaphragm to the symphysis pubis without oral contrast. IV 100mL Isovue-370 was administered. Sagittal and coronal images were reconstructed. Individualized dose optimization techniques were used for this CT. COMPARISON: None. FINDINGS: The visualized lung bases are unremarkable. The visualized portions of the heart are within normal limits. Nonspecific fatty infiltrated liver without mass or bile duct dilatation. There is a poorly calcified gallstone without evidence for acute inflammation Normal spleen. Normal pancreas. Normal bilateral adrenal glands. Normal right kidney. Normal left kidney. Normal visualized stomach. Normal small intestine. Minor diverticular disease of the descending colon without evidence for acute diverticulitis. The appendix is visualized and appears normal. Normal abdominal aorta. Normal inferior vena cava. Normal retroperitoneum. Normal urinary bladder. Normal abdominal wall. Lumbar spine demonstrates mild spondylosis CT/Abdomen/Pelvis W IV Cont ONLY IMPRESSION: Cholelithiasis without evidence for acute cholecystitis. Minor diverticular changes of the descending colon without evidence for acute diverticulitis No evidence for acute appendicitis or other significant abnormality. Electronically Signed: Irwin Alvarez MD at 21:06 EST ,
[2024-03-29 21:00] VITALS: BP 166/110; PULSE 65; RESP 15; O2SAT 95
--- NOTE | 2024-03-29 21:03 | ED.VIS.GI ---
HPI HPI - GI History of Present Illness Chief Complaint: Abd Pain Informant: patient and family Narrative Narrative: Left abdominal pain daily since [facility] liver week ago. No nausea or vomiting. History of constipation. Able to have a bowel movement yesterday still have pain in left side. No abdominal surgeries. Had colonoscopy earlier this year reported negative. No urinary symptoms. No fevers. Prior similar symptoms: No PFSH PFSH Medical History Wears glasses Non-smoker CPAP (continuous positive airway pressure) dependence Sleep apnea Abnormal biopsy result (~2005) Home Medications ?Medication ?Instructions ?Recorded ?Last Taken ?Type pantoprazole 40 mg tablet,delayed 40 mg PO DAILY #30 tabs 03/29/24 Unknown Rx release sucralfate 1 gram tablet (Carafate) 1 g PO Q6H #60 tabs 03/29/24 Unknown Rx Allergy/AdvReac Type Severity Reaction Status Date / Time codeine AdvReac Severe Vomiting Verified 03/29/24 15:49 Family History Mother Cancer LUNG Diabetes [facility] acquired PNA Aunt CAD (coronary artery disease) Heart disease Social History adopted: No household members: spouse and other details: sister in law housing: house current occupational status: employed Smoking Status: Never smoker second hand exposure: Yes alcohol intake: former year quit: 1996 substance use type: does not use ROS ROS ED Constitutional Constitutional ED: Denies chills, fever(s) or sweats Eyes Eyes: Denies change in vision ENT ENT ED: Denies dysphagia or sore throat Cardiovascular Cardiovascular: Denies chest pain, leg edema, palpitations or racing heartbeat Respiratory/Chest Respiratory/Chest: Denies cough, dyspnea or dyspnea on exertion Gastrointestinal Gastrointestinal: Reports abdominal pain and constipation; Denies diarrhea, nausea or vomiting Genitourinary Genitourinary ED: Denies dysuria, hematuria or urinary frequency Musculoskeletal Musculoskeletal: Denies back pain, extremity pain or neck pain Integumentary Denies rash or wounds Neurologic Neurologic: Denies headache(s), paresthesias or weakness EXAM Physical Exam Const Vital Signs: 03/29/24 15:46 03/29/24 19:00 03/29/24 21:00 Temperature 97.8 F Temperature Source Oral Pulse Rate 75 68 65 Respiratory Rate 16 18 15 Blood Pressure 164/87 H 155/65 H 166/110 H Blood Pressure Mean 112 95 128 Pulse Ox 98 98 95 Oxygen Delivery Method Room Air Room Air 03/29/24 22:44 Temperature 98 F Temperature Source Pulse Rate 81 Respiratory Rate 16 Blood Pressure 144/69 H Blood Pressure Mean 94 Pulse Ox 99 Oxygen Delivery Method Positive well nourished and well developed General Appearance ED: well developed and NAD HEENT Reports moist mucous membranes normocephalic and atraumatic Eyes EOMs intact bilaterally and conjunctivae normal General Eye ED: Yes normal appearance of both eyes Neck no lymphadenopathy and supple General: Negative for tenderness Chest Wall Chest: Negative for tenderness Resp normal respiratory effort and normal air movement Effort and Inspection: symmetric chest movement; Negative for respiratory distress Cardio regular rate, regular rhythm and no murmurs Peripheral Pulses: pulses 2+ throughout GI normal to inspection, nondistended, normoactive bowel sounds GI Narrative: mild tenderness left upper quadrant there is no swelling no splenomegaly. Negative Sandoval's and McBurney's. No left lower quadrant pain. Palpation: Negative for guarding or rebound tenderness present Extremity normal to inspection General Extremety ED: Negative for edema or tenderness General Extremity: Negative for edema Neuro oriented x3 and no sensory deficits noted Sensorium / Orientation: awake and alert Skin no rashes or lesions noted and no wounds MDM MDM MDM Narrative Medical decision making narrative: Interventions / MDM: Differential diagnosis: Gastritis, cholelithiasis Diagnosis considered but do not suspect: No clinical cholecystitis. Diverticulitis however CT negative. My EKG interpretation: Sinus rate of 80, no ST changes. Isolated T wave version aVL. Nonspecific. Imaging independently reviewed and interpreted by myself: CT abdomen pelvis IV contrast: Diverticulosis without diverticulitis. Cholelithiasis noted. Normal appendix. Also read by radiology. External documents reviewed: N/A Test considered but not ordered:N/A ED course: Due to busy department patient had labs and urine from triage. White count normal at 10.2. Creatinine 0.98. Liver enzymes normal. Urine noted mild blood no infection. Will add a lipase. CT scan ordered for further evaluation. 220: CT scan diverticulosis without diverticulitis. Cholelithiasis. Normal appendix. Lipase normal. Discussed with patient pain more epigastric states pain all the time cannot time is worse with food. Denies any black or bloody stools. No obstructions noted. Will treat with GI cocktail will reevaluate. 2235: There is some improvement with GI cocktail. Clinically more gastritis he discussed he does have cholelithiasis. Reports Dr. Hernández performs colonoscopy. He will be placed on Carafate and a PPI. He will follow-up with Dr. Hernández. All questions were answered. Re-evaluation: stable Disposition discussed with patient/family/significant other: Patient and family Case discussed with consulting clinician: N/A This note was generated with [employer] dictation software. It may contain incorrect words, spelling, and punctuation that were not noted in checking the note before signing. Lab Data Labs: Laboratory Results - last 24 hr 03/29/24 03/29/24 18:12 18:20 WBC 10.2 RBC 4.83 Hgb 14.3 Hct 44.0 MCV 91.1 MCH 29.6 MCHC 32.5 RDW Std Deviation 39.8 RDW Coeff of Gregory 11.9 Plt Count 225 MPV 11.3 Immature Gran % (Auto) 0.400 Neut % (Auto) 67.3 Lymph % (Auto) 22.6 [place] % (Auto) 7.9 Eos % (Auto) 1.4 Baso % (Auto) 0.4 Absolute Neuts (auto) 6.9 Absolute Lymphs (auto) 2.31 Nucleated RBC % 0 Sodium 139 Potassium 4.5 Chloride 105 Carbon Dioxide 30.0 Anion Gap 5 BUN 10 Creatinine 0.98 Estim Creat Clear Calc 149.60 Est GFR (MDRD) Af Amer 104 Est GFR (MDRD) Non-Af 86 BUN/Creatinine Ratio 10.2 Glucose 109 H Calcium 9.7 Total Bilirubin 0.50 AST 16 ALT 36 Alkaline Phosphatase 86 Total Protein 7.2 Albumin 3.9 Globulin 3.3 Albumin/Globulin Ratio 1.2 Lipase 18 Urine Color Straw Urine Clarity Clear Urine pH 7.0 Ur Specific [place] 1.010 Urine Protein Negative Urine Glucose (UA) Normal Urine Ketones Negative Urine Occult Blood 10 H Urine Nitrite Negative Urine Bilirubin Negative Urine Urobilinogen Normal Ur Leukocyte Esterase Negative Urine RBC 0 SEEN Urine WBC 0-5 SEEN Ur Squamous Epith Cells 0-5 SEEN Urine Bacteria 0 SEEN Urine Mucus 0 SEEN Radiography Diagnostic Testing: Clinical Impression(s) from Imaging Studies Abdomen/Pelvis CT 03/29/24 20:18 IMPRESSION: Cholelithiasis without evidence for acute cholecystitis. Minor diverticular changes of the descending colon without evidence for acute diverticulitis No evidence for acute appendicitis or other significant abnormality. Electronically Signed: Irwin Alvarez MD at 21:06 EST Reading Location ID and State: [address] [place] [address] Tel , Service support , Discharge Plan Triage Chief Complaint: Abd Pain ED Provider: Seven Ramirez Dx/Rx/DC Orders Clinical Impression: Gastritis, Cholelithiasis, Abdominal pain Instructions: Abdominal Pain, Gallstones Dc, ED Gastritis (Adult) Prescriptions: New sucralfate [Carafate] 1 gram tablet 1 g PO Q6H Qty: 60 0RF pantoprazole 40 mg tablet,delayed release (DR/EC) 40 mg PO DAILY Qty: 30 0RF Primary Care Provider: Angeles Shelton Referrals: Wil Hernández MD [Med Staff - Active Staff] - 1-2 Weeks Angeles Shelton, TERMINATION CLERK-C [Primary Care Provider] - Activity Restrictions/Additional Instructions: CT abdomen pelvis cholelithiasis. Diverticulosis without diverticulitis. Normal appendix. Your symptoms were concerning for gastritis symptoms. Monitor for black or tarry stools. Avoid NSAIDs. Take medication prescribed. Follow-up with Dr. Hernández. Print Language: Hungarian Disposition Disposition: Home, Self Care Discharge Date/Time: 03/29/24 22:45
[2024-03-29 21:37] LABS: Lipase 18 U/L (13-75)
[2024-03-29] MEDS: Lidocaine 2% Viscous15 ML UDC 15 ML PO (22:17)
[2024-03-29] MEDS: Mag Hydrox/Al Hydrox/Simeth 30 ML UDC PO (22:17)
[2024-03-29 22:44] VITALS: BP 144/69; PULSE 81; RESP 16; TEMP 36.6; O2SAT 99
== END 2024-03-29 22:45 | disposition home or self-care (01) ==
PROVIDERS: Emergency Provider Emergency Medicine; PCP Nurse Practitioner Family; Visit Provider Emergency Medicine
DX: K29.70 Gastritis, unspecified, without bleeding (principal); K80.20 Calculus of gallbladder without cholecystitis without obstruction; R31.9 Hematuria, unspecified
CPT/HCPCS: 74177; 80053; 81001; 83690; 85025; 93005; 99283; Q9967; A4216

== ENCOUNTER 2024-05-15 10:41 | Emergency (ER) | payer BC, SELFPAY ==
[2024-05-15 10:43] VITALS: BP 147/101; PULSE 96; RESP 14; TEMP 36.4; O2SAT 93; BMI 51.2
--- NOTE | 2024-05-15 10:50 | RAD_ITS ---
STUDY: X-RAY CHEST REASON FOR EXAM: Male, 53 years old. Chest pain TECHNIQUE: Single AP portable view of the chest. COMPARISON: Comparison is made with prior study of January 18, 2024. FINDINGS: EKG electrodes are seen. Mild degree of vascular congestion. There is no demonstrated pleural abnormality. There is borderline cardiomegaly. Normal mediastinum and lillie. Normal visualized pulmonary arteries. Normal visualized aortic arch and descending thoracic aorta. Normal visualized thoracic spine. Normal visualized ribs, clavicles, and shoulders. There is no demonstrated abnormality of the visualized soft tissue structures of the upper abdomen. RAD/Chest 1 View (Portable) IMPRESSION: Mild degree of vascular congestion. Borderline cardiomegaly. Electronically Signed: Deonte Suarez MD at 11:53 EST ,
--- NOTE | 2024-05-15 10:53 | EKG12_ITS ---
Test Reason : Blood Pressure : */* mmHG Vent. Rate : 92 BPM Atrial Rate : 92 BPM P-R Int : 200 ms QRS Dur : 136 ms QT Int : 392 ms P-R-T Axes : 42 -59 76 degrees QTcB Int : 484 ms Normal sinus rhythm Left axis deviation Non-specific intra-ventricular conduction block Minimal voltage criteria for LVH, may be normal variant ( Cam product ) Abnormal ECG Confirmed by MARC CINTRON, JONNY ([id number]), design editor CHIP ORELLANA ([id number]) on 05/21/2024 7:07:29 AM Referred By: Confirmed By: JONNY TRAN MD
[2024-05-15 11:00] LABS: Absolute Lymphocyte Count 2.21 X10^3/uL (0.83-4.51); Absolute Neutrophil Count 4.5 X10^3/uL (2.0-7.7); Basophil# 0.04 X10^3/uL; Basophil% 0.5 % (0-1); Eosinophil# 0.16 X10^3/uL; Eosinophils% 2.1 % (0-5); Hematocrit 43.6 % (40-54); Hemoglobin 14.5 g/dL (13.0-16.5); Lymphocyte # 2.21 X10^3/ul (0.83-4.51); Lymphocyte % 29.2 % (19-41); Mean Corp Hgb Conc 33.3 g/dL (32-36); Mean Corpuscular Hgb 29.9 pg (27.0-32.0); Mean Corpuscular Volume 89.9 fL (80-94); Mean Platelet Vol. 11.6 fl (6.2-12.0); Monocyte# 0.64 X10^3/uL; Monocyte% 8.4 % (0-10); NRBC Flagged by Analyzer 0 % (0-5); Neutrophil # 4.49 X10^3/uL (2.7-7.7); Neutrophil % 59.3 % (47-70); Platelet Count 189 K/mm3 (150-450); RBC Distribution Width CV 12.2 % (11.6-14.6); RBC Distribution Width SD 40.3 fl (35.1-43.9); Red Blood Count 4.85 M/mm3 (4.6-6.2); White Blood Count 7.6 K/mm3 (4.4-11.0)
[2024-05-15 11:09] VITALS: BP 153/100; PULSE 91; RESP 14; O2SAT 94
[2024-05-15 11:30] LABS: Anion Gap 8 (5-15); BUN 14 mg/dL (7-18); BUN/Creat Ratio 15.8 RATIO (10-20); Calcium,Total 9.8 mg/dL (8.5-10.1); Chloride 105 mmol/L (98-107); Creatinine, Serum 0.89 mg/dL (0.70-1.30); EST Glomerular Filtration Rate 96 mL/min (>60); Est Glom Filt Rate - Afr Amer 116 mL/min (>60); Estimated Creatinine Clearance 178.39 ml/min; Glucose 155 mg/dL (74-106); Potassium 3.5 mmol/L (3.5-5.1); Sodium Level 138 mmol/L (136-145); Troponin-I HS (w/2H Reflex) 26 pg/mL (3.0-78.0)
--- NOTE | 2024-05-15 11:51 | EX.ED.DYSGE1 ---
HPI History of Present Illness Chief Complaint: Palpitations Informant: patient Onset/Context/Timing Onset: Today Context: Sudden Onset Timing: Intermittent Quality: Racing Location: Chest Worsened by: Nothing Relieved by: Nothing Narrative Narrative: Patient presents with palpitations that began today. Patient states he was at work when he felt his heart racing. Patient states that he felt achy all over. Patient states nothing makes it better. Patient states he noted 2 doses of adenosine which seemed to help. Patient admits to some nausea and vomiting. Patient has a history of SVT. Patient denies any recent [id number]-amb-peihkgg decongestants or cough medications. Patient denies any excessive caffeine use. Chest pain patient denies any shortness of breath. EMS performed EKG which showed supraventricular tachycardia. EMS administered 2 doses of adenosine. Patient converted after this. [facility] Medical History SVT (supraventricular tachycardia) Wears glasses Non-smoker CPAP (continuous positive airway pressure) dependence Sleep apnea Abnormal biopsy result (~2005) Home Medications ?Medication ?Instructions ?Recorded ?Last Taken ?Type NK 05/15/24 Unknown History metoprolol tartrate 25 mg tablet 25 mg PO DAILY #30 tabs 05/15/24 Unknown Rx Allergy/AdvReac Type Severity Reaction Status Date / Time codeine AdvReac Severe Vomiting Verified 05/15/24 10:43 Family History Mother Cancer LUNG Diabetes [facility] acquired PNA Aunt CAD (coronary artery disease) Heart disease Social History adopted: No household members: spouse and other details: sister in law housing: house current occupational status: employed Smoking Status: Never smoker second hand exposure: Yes alcohol intake: former year quit: 1996 substance use type: does not use ROS ROS ED Constitutional Constitutional ED: Reports sweats; Denies chills or fever(s) Eyes Eyes: Reports blurry vision; Denies diplopia ENT ENT ED: Denies rhinorrhea or sore throat Cardiovascular Cardiovascular: Reports chest pain and palpitations Respiratory/Chest Respiratory/Chest: Denies cough or dyspnea Gastrointestinal Gastrointestinal: Reports nausea and vomiting Genitourinary Genitourinary ED: Denies dysuria or hematuria Musculoskeletal Musculoskeletal: Reports back pain; Denies neck pain Integumentary Denies abscess or rash Neurologic Neurologic: Reports headache(s) and weakness Allergic/Immunologic Allergic/Immunologic ED: Denies mouth swelling or urticaria EXAM Physical Exam Const Vital Signs: 05/15/24 10:43 05/15/24 10:48 05/15/24 11:09 Temperature 97.6 F L Temperature Source Oral Pulse Rate 96 91 Respiratory Rate 14 14 Respiratory Effort Normal Non-Labored Blood Pressure 147/101 H 153/100 H Blood Pressure Mean 116 117 Pulse Ox 93 94 Oxygen Delivery Method Room Air Room Air 05/15/24 11:55 05/15/24 12:10 05/15/24 13:50 Temperature Temperature Source Pulse Rate 84 84 76 Respiratory Rate 17 16 16 Respiratory Effort Blood Pressure 141/97 H 142/94 H 140/80 H Blood Pressure Mean 111 110 100 Pulse Ox 92 94 96 Oxygen Delivery Method Room Air Room Air Room Air 05/15/24 14:17 Temperature 97.6 F L Temperature Source Pulse Rate 70 Respiratory Rate 12 Respiratory Effort Blood Pressure 133/74 H Blood Pressure Mean 93 Pulse Ox 97 Oxygen Delivery Method Positive well nourished and well developed Constitutional Narrative: Patient has a BMI of 51.2. General Appearance ED: well developed and NAD HEENT Reports moist mucous membranes Neck supple and no JVD Resp normal respiratory effort and clear to auscultation bilaterally Cardio regular rhythm Rate: tachycardic GI non-tender and non-distended Palpation: soft Neuro oriented x3, CN's II-XII intact bilaterally and no sensory deficits noted Sensorium / Orientation: alert Motor Exam: strength 5/5 throughout Psych mental status grossly normal MDM MDM MDM Narrative Medical decision making narrative: Differential diagnosis includes supraventricular tachycardia, cardiac dysrhythmia, electrolyte abnormality, dehydration, anxiety, pneumonia, and pneumothorax. EKG will be obtained to assess for cardiac dysrhythmia and cardiac ischemia. Chest x-ray will be obtained to assess for pneumonia and pneumothorax. CBC will be obtained to assess for leukocytosis and anemia. Basic metabolic profile will be obtained to assess for electrolyte abnormality and renal function. High-sensitivity troponin will be obtained to assess for cardiac ischemia. 2-hour repeat high-sensitivity troponin will be obtained to assess for ongoing cardiac ischemia. Lab Data Attestation: I reviewed the patient's lab results. Lab results narrative: CBC was reviewed and was within normal limits. Basic metabolic profile was reviewed and showed a slightly elevated glucose of 155. The remainder is within normal limits. High-sensitivity troponin was reviewed and was normal at 26. 2-hour repeat high-sensitivity troponin was reviewed and was 47. Labs: Laboratory Results - last 24 hr 05/15/24 05/15/24 10:51 13:00 WBC 7.6 RBC 4.85 Hgb 14.5 Hct 43.6 MCV 89.9 MCH 29.9 MCHC 33.3 RDW Std Deviation 40.3 RDW Coeff of Gregory 12.2 Plt Count 189 MPV 11.6 Immature Gran % (Auto) 0.500 Neut % (Auto) 59.3 Lymph % (Auto) 29.2 [place] % (Auto) 8.4 Eos % (Auto) 2.1 Baso % (Auto) 0.5 Absolute Neuts (auto) 4.5 Absolute Lymphs (auto) 2.21 Nucleated RBC % 0 Sodium 138 Potassium 3.5 Chloride 105 Carbon Dioxide 25.0 Anion Gap 8 BUN 14 Creatinine 0.89 Estim Creat Clear Calc 178.39 Est GFR (MDRD) Af Amer 116 Est GFR (MDRD) Non-Af 96 BUN/Creatinine Ratio 15.8 Glucose 155 H Calcium 9.8 Troponin I High Sens 26 47 Radiography Chest X-Ray - ED: 1 View, Read by ED Physician, Read by Radiologist and Cardiomegaly (Borderline) Diagnostic Testing: Clinical Impression(s) from Imaging Studies Chest X-Ray 05/15/24 10:50 IMPRESSION: Mild degree of vascular congestion. Borderline cardiomegaly. Electronically Signed: Deonte Suarez MD at 11:53 EST , Portable 1 view chest x-ray was obtained. On my independent interpretation, lung machuca show mild vascular congestion. There is borderline cardiomegaly. Bony thorax is normal. There is no acute process noted. Radiologist also interpreted the x-ray and agrees. EKG Initial EKG: Attestation: I personally reviewed and interpreted this EKG as follows: Interpretation: Sinus Rhythm (92) and Non-Specific ST Changes Comments: EKG was obtained. On my independent interpretation, it showed a normal sinus rhythm with a rate of 92. LA interval was normal at 200 ms. QRS interval was slightly prolonged at 136 ms. QTc interval was 484 ms. There is left axis deviation at -59. There is evidence of left ventricular hypertrophy. There are nonspecific ST-T wave changes. Prior EKG tracings: available for review Prior: Unchanged (03/29/2024) Treatment and Re-Evaluation :: Patient was given a dose of Tylenol here. Patient was advised of his findings. Patient had a delta troponin of 21. It is likely related to the supraventricular tachycardia. Case was discussed with the hospitalist. She contacted cardiology who felt that the elevated delta troponin was likely due to the episode of supraventricular tachycardia. He recommended starting the patient on a beta-percy and following up as an outpatient. Patient was given a prescription for metoprolol. Patient was instructed to follow-up with his primary care physician in 5 to 7 days. Patient was also given outpatient follow-up with cardiology. Patient understood and was agreeable with the plan. All questions were answered. Discharge Plan Triage Chief Complaint: Palpitations ED Provider: Estuardo Peters Dx/Rx/DC Orders Clinical Impression: Supraventricular tachycardia, Chest tightness Instructions: ED Understanding Supraventricular Tachycardia (SVT) Prescriptions: New metoprolol tartrate 25 mg tablet 25 mg PO DAILY Qty: 30 0RF No Action NK Primary Care Provider: Angeles Shelton Referrals: Angeles Shelton NP-C [Primary Care Provider] - 5-7 Days Print Language: Croatian Disposition Disposition: Home, Self Care
[2024-05-15 11:55] VITALS: BP 141/97; PULSE 84; RESP 17; O2SAT 92
[2024-05-15] MEDS: Acetaminophen 500 MG Tablet 1000 MG PO (12:08)
--- NOTE | 2024-05-15 12:09 | ED.RN ---
1 L NS infused from EMS
[2024-05-15 12:10] VITALS: BP 142/94; PULSE 84; RESP 16; O2SAT 94
[2024-05-15 12:56] LABS: Reflex Troponin-HS? (from REC) Y
[2024-05-15 13:34] LABS: Troponin-I HS 47 pg/mL (3.0-78.0)
[2024-05-15 13:50] VITALS: BP 140/80; PULSE 76; RESP 16; O2SAT 96
[2024-05-15 14:17] VITALS: BP 133/74; PULSE 70; RESP 12; TEMP 36.4; O2SAT 97
== END 2024-05-15 15:22 | disposition home or self-care (01) ==
PROVIDERS: Emergency Provider Emergency Medicine; PCP Nurse Practitioner Family; Visit Provider Emergency Medicine
DX: I47.10 Supraventricular tachycardia, unspecified (principal); R11.2 Nausea with vomiting, unspecified; R07.89 Other chest pain; M54.9 Dorsalgia, unspecified; R73.9 Hyperglycemia, unspecified
CPT/HCPCS: 71045; 80048; 84484; 85025; 93005; 99285; A4216

== ENCOUNTER 2024-06-25 14:03 | Inpatient (IN) | payer BC, SELFPAY ==
[2024-06-25] VITALS (27 sets, daily range): BP systolic 96–155; BP diastolic 39–130; PULSE 53–230; RESP 10–20; TEMP 36.3–36.4; O2SAT 92–100; BMI 52.8; BMI 56.9
[2024-06-25] MEDS: Etomidate 20 MG/10 ML Vial IV (14:10)
--- NOTE | 2024-06-25 14:15 | EKG12_ITS ---
Test Reason : HIGH HR Blood Pressure : */* mmHG Vent. Rate : 224 BPM Atrial Rate : * BPM P-R Int : * ms QRS Dur : 132 ms QT Int : 208 ms P-R-T Axes : * -87 88 degrees QTcB Int : 401 ms Critical Test Result: High HR , Arrhythmia Ventricular tachycardia (ventricular or supraventricular with aberration) Confirmed by Wil Daley ([id number]), fashion editor MANDO MORGAN ([id number]) on 06/27/2024 6:52:16 AM Referred By: Confirmed By: Wil Daley
--- NOTE | 2024-06-25 14:17 | EX.ED.DYSGE1 ---
HPI History of Present Illness Chief Complaint: Chest Pain Detail of Chief Complaint: Chest pressure, diaphoresis and rapid heart rate Informant: patient and EMS Onset/Context/Timing Onset: Today (At approximately 1330) Context: Sudden Onset Timing: Continuous Quality: Elephant sitting on my chest Location: Midsternal Current Severity: Moderate Maximum Severity: Moderate Worsened by: Nothing Relieved by: Nothing Associated Symptoms Associated Symptoms: Wide-complex tachycardia on monitor Narrative Narrative: Patient is a 53-year-old male. He has history of obstructive sleep apnea, SVT who was recently seen by Dr. Daley. He was prescribed metoprolol 25 mg twice daily, which she did not fill. He did have a visit for chest tightness in December. He had at that time carotid duplex studies echocardiogram. Echocardiogram report was reported under the MDM portion of the EMR. Since patient has wide-complex tachycardia that appears to be V. tach with complaint of elephant on his chest and diaphoresis he was verbally consented for emergent cardioversion. He has no allergies to IV anesthetics. Does have allergy to codeine with vomiting. Patient received 20 mg of etomidate. Once patient achieved deep sedation he was successfully cardioverted with 200 J. He has a wide-complex rhythm noted on the monitor. Recent Illness/Hospitalization: Yes (Seen April of this year with follow-up visit June [address] Daley.) [facility] Medical History Prediabetes Myocardial infarction Urinary dribbling Anemia Abnormal EKG Hyperlipidemia Hypothyroidism Obesity GERD (gastroesophageal reflux disease) SVT (supraventricular tachycardia) Wears glasses Non-smoker CPAP (continuous positive airway pressure) dependence Sleep apnea Abnormal biopsy result (~2005) Home Medications ?Medication ?Instructions ?Recorded ?Last Taken ?Type metoprolol tartrate 25 mg tablet 25 mg PO BID #180 tabs 06/05/24 Unknown Rx Allergy/AdvReac Type Severity Reaction Status Date / Time codeine AdvReac Severe Vomiting Verified 06/05/24 10:36 Family History Mother Cancer LUNG Diabetes Hypertension Thyroid disorder Heart disease [facility] acquired PNA Aunt CAD (coronary artery disease) Heart disease Surgical History History of colonoscopy Social History adopted: No household members: spouse and other details: sister in law housing: house current occupational status: employed Smoking Status: Never smoker second hand exposure: Yes alcohol intake: former year quit: 1996 substance use type: does not use ROS ROS ED Constitutional Constitutional ED: Denies chills, fever(s) or subjective Eyes Eyes: Denies blurry vision or change in vision ENT ENT ED: Denies ear pain or rhinorrhea Cardiovascular Cardiovascular: Reports chest pain, palpitations and racing heartbeat; Denies orthopnea or paroxysmal nocturnal dyspnea Respiratory/Chest Respiratory/Chest: Reports dyspnea and dyspnea on exertion; Denies cough, orthopnea, paroxysmal nocturnal dyspnea or sputum Gastrointestinal Gastrointestinal: Denies abdominal pain, nausea or vomiting Musculoskeletal Musculoskeletal: Denies myalgias Integumentary Reports other Details: Patient is diaphoretic. ; Denies rash Psychiatric Psychiatric: Denies anxiety or depression Hematologic/Lymphatic Hematologic/Lymphatic: Reports systems reviewed and no addt'l complaints, except as documented EXAM Physical Exam Const Vital Signs: 06/25/24 14:04 06/25/24 14:10 06/25/24 14:12 Temperature 97.6 F L Temperature Source Temporal Pulse Rate 224 H Pulse Rate [1 (Initial Baseline)] 230 H Respiratory Rate 20 H Respiratory Rate [1 (Initial Baseline)] 18 Respiratory Effort Normal Respiratory Pattern Tachypnea Blood Pressure 141/130 H Blood Pressure [1 (Initial Baseline)] 141/130 H Blood Pressure Mean 133 Baseline BP Pulse Ox 96 Oxygen Delivery Method Room Air Oxygen Delivery Method [1 (Initial Baseline)] Nasal Cannula Oxygen Flow Rate (L/min) Oxygen Flow Rate (L/min) [1 (Initial Baseline)] 6 EtCo2 (Normal 35-45 , high quality CPR 10-20 & ROSC>/=40mmHg EtCo2 (Normal 35-45 , high quality CPR 10-20 & ROSC>/=40mmHg [1 (Initial Baseline)] 35 06/25/24 14:15 06/25/24 14:20 06/25/24 14:20 Temperature Temperature Source Pulse Rate 84 78 Pulse Rate [1 (Initial Baseline)] Respiratory Rate 16 15 Respiratory Rate [1 (Initial Baseline)] Respiratory Effort Respiratory Pattern Blood Pressure 124/81 H 130/82 H Blood Pressure [1 (Initial Baseline)] Blood Pressure Mean Baseline BP Pulse Ox 97 97 Oxygen Delivery Method Nasal Cannula Nasal Cannula Nasal Cannula Oxygen Delivery Method [1 (Initial Baseline)] Oxygen Flow Rate (L/min) 6 6 Oxygen Flow Rate (L/min) [1 (Initial Baseline)] EtCo2 (Normal 35-45 , high quality CPR 10-20 & ROSC>/=40mmHg 36 37 EtCo2 (Normal 35-45 , high quality CPR 10-20 & ROSC>/=40mmHg [1 (Initial Baseline)] 06/25/24 14:22 06/25/24 14:25 06/25/24 14:30 Temperature 97.4 F L Temperature Source Pulse Rate 230 H 82 Pulse Rate [1 (Initial Baseline)] Respiratory Rate 18 15 Respiratory Rate [1 (Initial Baseline)] Respiratory Effort Respiratory Pattern Blood Pressure 141/130 H 124/81 H Blood Pressure [1 (Initial Baseline)] Blood Pressure Mean Baseline BP 141/130 Pulse Ox 97 94 Oxygen Delivery Method Room Air Room Air Oxygen Delivery Method [1 (Initial Baseline)] Oxygen Flow Rate (L/min) Oxygen Flow Rate (L/min) [1 (Initial Baseline)] EtCo2 (Normal 35-45 , high quality CPR 10-20 & ROSC>/=40mmHg 37 39 EtCo2 (Normal 35-45 , high quality CPR 10-20 & ROSC>/=40mmHg [1 (Initial Baseline)] 06/25/24 14:30 Temperature Temperature Source Pulse Rate 81 Pulse Rate [1 (Initial Baseline)] Respiratory Rate 15 Respiratory Rate [1 (Initial Baseline)] Respiratory Effort Respiratory Pattern Blood Pressure 117/87 H Blood Pressure [1 (Initial Baseline)] Blood Pressure Mean Baseline BP Pulse Ox 92 Oxygen Delivery Method Room Air Oxygen Delivery Method [1 (Initial Baseline)] Oxygen Flow Rate (L/min) Oxygen Flow Rate (L/min) [1 (Initial Baseline)] EtCo2 (Normal 35-45 , high quality CPR 10-20 & ROSC>/=40mmHg 36 EtCo2 (Normal 35-45 , high quality CPR 10-20 & ROSC>/=40mmHg [1 (Initial Baseline)] Positive well nourished Constitutional Narrative: BMI is 52.8. Patient has delayed capillary refill taking 4 seconds. General Appearance ED: Negative for pallor HEENT HEENT Narrative: Head is atraumatic normocephalic. Ears normal. Patient is wearing safety goggles. Nares patent. Eyes PERRL and EOMs intact bilaterally General Eye ED: Negative for pale conjunctiva or scleral icterus Neck no lymphadenopathy, supple and no JVD Chest Wall inspection of chest normal and palpation of chest normal Resp normal respiratory effort and clear to auscultation bilaterally Cardio no murmurs Rate: tachycardic GI normal to inspection, nondistended, normoactive bowel sounds, non-tender, non-distended and no masses; Negative for hepatosplenomegaly Palpation: soft Back/Spine no CVA tenderness Extremity normal to inspection General Extremety ED: Yes edema; Negative for tenderness General Extremity: edema Neuro oriented x3 and CN's II-XII intact bilaterally Sensorium / Orientation: alert Psych mental status grossly normal Skin no rashes or lesions noted, no wounds and skin turgor normal General Skin Exam: Negative for jaundice or pallor MDM MDM MDM Narrative Medical decision making narrative: With wide-complex tachycardia consistent with V. tach complaining of pressure on his chest diaphoresis poor perfusion patient was verbally consented for emergent cardioversion. He received 20 mg of etomidate. He did not desaturate during the procedure. He was successfully cardioverted with 200 J. EKG upon arrival is consistent with V. tach rate of 224. He has what appears to be a left axis and right bundle branch block. EKG post cardioversion is a sinus rhythm with premature ventricular beats noted. [place] to the left. There is what appears to be a left axis and left intrafascicular block. There is no acute ischemic changes noted. With history of drug-induced myocardial infarction will obtain drug screen to assess for amphetamines which was the cause of his DC in 2019. History & Record Review Additional record(s) reviewed:: Prior outpatient record (Reviewed Dr. Daley records from June 05, 2024 and echo from December 2023), Prior ED visit (Reviewed Dr. Estuardo Ramos's note from April. Patient was treated for SVT at that time.) and Prior labs Lab Data Attestation: I reviewed the patient's lab results. Lab results narrative: CBC is unremarkable. Electrolyte panel troponin are pending. This can be followed by the hospitalist and post form remover in the ICU. Labs: Laboratory Results - last 24 hr 06/25/24 14:07 WBC 10.5 RBC 4.86 Hgb 14.8 Hct 44.0 MCV 90.5 MCH 30.5 MCHC 33.6 RDW Std Deviation 40.2 RDW Coeff of Gregory 12.4 Plt Count 257 MPV 12.1 H Immature Gran % (Auto) 1.000 H Neut % (Auto) 51.7 Lymph % (Auto) 35.8 [place] % (Auto) 9.1 Eos % (Auto) 1.8 Baso % (Auto) 0.6 Absolute Neuts (auto) 5.4 Absolute Lymphs (auto) 3.76 Nucleated RBC % 0 Radiography Chest X-Ray - ED: 1 View, Read by ED Physician (Interpreted by me at 1447.), Heart, Mediastinum, Bony Structures and CHF Diagnostic Testing: Clinical Impression(s) from Imaging Studies Chest X-Ray 06/25/24 14:40 IMPRESSION: 1. Limited hypoinflated portable exam. Grossly similar cardiomegaly with findings suggestive of volume overload including mild pulmonary edema, although atypical or multifocal pneumonia could have a similar appearance. 2. Mediastinal findings which could be projectional, related to vascular congestion, mediastinal lipomatosis, mediastinal lymphadenopathy, or other mediastinal process. Compare with any available more remote outside imaging to establish long-term stability. If unavailable, recommend follow-up CT chest, ideally with IV contrast. 3. Additional description as above. Reading Location: [facility] EKG Initial EKG: Attestation: I personally reviewed and interpreted this EKG as follows: (Documented under the medical decision making narrative for the first and second EKG.) Follow-up EKG: Attestation: I personally reviewed and interpreted this EKG as follows: Interpretation: Sinus Rhythm (EKG #3 because of chest pain rate of 78, TN interval 206 ms. QRS duration 136 ms QT duration 126 ms. [place] to the left. There is evidence of LVH.) Management Discussion w/another healthcare provider: Hospitalist (Dr. Zhang was paged for admission to ICU.) and Ethanol Operations Manager (Spoke to Dr. Peraza because of concern if this represents V. tach or not. He will see patient in the ER. Dr. Daley recommend admission to ICU oral load with amiodarone 400 mg twice daily. Confirmed weight limit for cardiac cath table. Patient does not surpass this. He requested serial troponin l) Treatment and Re-Evaluation :: Interpretation of echo performed December 2023 revealed an estimated ejection fraction 50%. There is moderate concentric left ventricular hypertrophy. The left atrium is mildly enlarged. Structurally normal valves. The study was technically difficult. Contrast was performed. Nurse informing he is developing chest pressure. EKG #3 was ordered. Procedures Procedural Sedation 1 (Initial Baseline): Consent Signed: No (Verbal consent due to instability) You/Your family experience fever (hyperthermia) w/anesthesia: No Sedation medication: Etomidate Dose: 20 Route: IV Total Moderate Sedation Units: 3 Maliampati Score: Class II ASA Classification: E and II Comment:: Successfully cardioverted with 200 J. Critical Care Time Critical Care Time: Yes Critical care time (excluding procedures): 30-74 minutes (32), Including time spent: (History, physical, documentation, discussion with prior to cardioversion after cardioversion, independent rotation of laboratory results, consultation with cardiology and hospitalist for admission to ICU), Discussing w/Patient &/or Family/Buckle Attaching Machine Operator, Discussing w/Consultants, Arranging Admission or Transfer and - (Review of prior records and echo.) Discharge Plan Dx/Rx/DC Orders Clinical Impression: Ventricular tachycardia, Obstructive sleep apnea, Chest pressure, Adult BMI 50.0-59.9 kg/sq m Disposition Disposition: Acute Care Hospital [facility]
--- NOTE | 2024-06-25 14:30 | EKG12_ITS ---
Test Reason : AFTER CARDIOVERT Blood Pressure : */* mmHG Vent. Rate : 100 BPM Atrial Rate : 100 BPM P-R Int : 202 ms QRS Dur : 138 ms QT Int : 344 ms P-R-T Axes : 44 -52 80 degrees QTcB Int : 443 ms Sinus rhythm with occasional Premature ventricular complexes Left axis deviation Nonspecific IVCD Abnormal ECG Confirmed by Wil Daley ([id number]), commercial production editor MANDO MORGAN ([id number]) on 06/27/2024 6:52:54 AM Referred By: Confirmed By: Wil Daley
[2024-06-25] MEDS: Ondansetron 4 MG/2 ML Vial IV (14:32)
--- NOTE | 2024-06-25 14:40 | RAD_ITS ---
PROCEDURE: CHEST 1 VIEW (PORTABLE) REASON FOR EXAM: Chest pain TECHNIQUE: Single portable AP view of the chest was obtained. COMPARISON: 05/15/2024 FINDINGS: Heart: Similar cardiomegaly likely exacerbated by portable technique and hypoinflation. Mediastinum: Widening of the right paratracheal stripe is similar to 01/18/2024. Central vascular prominence. Lungs/pleura: Hypoinflation with vascular crowding. Mild bilateral perihilar/central opacities. No sizeable pleural effusion or visible pneumothorax. Bones: Unremarkable. Lines and support devices: None. RAD/Chest 1 View (Portable) IMPRESSION: 1. Limited hypoinflated portable exam. Grossly similar cardiomegaly with findi ngs suggestive of volume overload including mild pulmonary edema, although atypical or multifocal pneumonia could have a similar appearance. 2. Mediastinal findings which could be projectional, related to vascular conges tion, mediastinal lipomatosis, mediastinal lymphadenopathy, or other mediastinal process. Compare with any available more remote outside imaging to establish long-term stability. If unavailable, recommend follow-up CT chest, ideally with IV contr ast. 3. Additional description as above. Reading Location: [id number]
[2024-06-25 14:46] LABS: Absolute Lymphocyte Count 3.76 X10^3/uL (0.83-4.51); Absolute Neutrophil Count 5.4 X10^3/uL (2.0-7.7); Basophil# 0.06 X10^3/uL; Basophil% 0.6 % (0-1); Eosinophil# 0.19 X10^3/uL; Eosinophils% 1.8 % (0-5); Hemoglobin 14.8 g/dL (13.0-16.5); Lymphocyte # 3.76 X10^3/ul (0.83-4.51); Lymphocyte % 35.8 % (19-41); Mean Corp Hgb Conc 33.6 g/dL (32-36); Mean Corpuscular Hgb 30.5 pg (27.0-32.0); Mean Corpuscular Volume 90.5 fL (80-94); Mean Platelet Vol. 12.1 fl (6.2-12.0); Monocyte# 0.96 X10^3/uL; Monocyte% 9.1 % (0-10); NRBC Flagged by Analyzer 0 % (0-5); Neutrophil # 5.43 X10^3/uL (2.7-7.7); Neutrophil % 51.7 % (47-70); Platelet Count 257 K/mm3 (150-450); RBC Distribution Width CV 12.4 % (11.6-14.6); RBC Distribution Width SD 40.2 fl (35.1-43.9); Red Blood Count 4.86 M/mm3 (4.6-6.2); White Blood Count 10.5 K/mm3 (4.4-11.0)
--- NOTE | 2024-06-25 14:58 | CON.PCM.CA_ITS ---
Assessment & Plan Assessment/Plan (1) Ventricular tachycardia: PLAN: Patient's EKG in the wide-complex tachycardia is consistent ventricular tachycardia. The QRS orientation is opposite that end of the leads from when he was in a sinus rhythm. The heart rate is 240-250 bpm. The patient was very symptomatic but was not unresponsive. He still had a blood pressure. IV adenosine did not convert him to a regular rhythm. 150 mg of IV amiodarone was administered followed by conscious sedation and a single 200 J synchronized cardioversion back to sinus rhythm. The patient will be loaded with amiodarone 400 mg twice daily. We will follow-up on the patient's troponins electrolytes and make certain that his sleep apnea is appropriately treated. The patient's troponin is 7 and his BNP is less than 36. Will have to consider left heart catheterization to definitively rule out coronary artery disease as the etiology of an ischemic burden. Will obtain 2D echocardiogram in the next 24 hours. (2) Chest pressure: PLAN: Patient did not describe chest pressure until he was in this wide-complex tachycardia today. His follow-up EKG after cardioversion does not show any ischemic changes and looks identical to the EKG previously done on June 05, 2024. No evidence of an acute ischemic events with troponin additionally of 7 and BNP less than 36. The delta troponin is pending. (3) Adult BMI 50.0-59.9 kg/sq m: PLAN: The patient is morbidly obese we need to get an accurate weight is a cast table and EP tables are maxed out at approximately 475/500 pounds. (4) Abnormal EKG: PLAN: Patient's EKG shows left axis deviation sinus rhythm and nonspecific interventricular conduction delay. (5) Hyperlipidemia: QUALIFIERS: Hyperlipidemia type: pure hypercholesterolemia Q ualified Code(s): E78.00 - Pure hypercholesterolemia, unspecified PLAN: Patient has a history of hyperlipidemia that he is on no lipid therapy in his home environment. Will check his fasting lipids during this hospitalization. (6) Sarcoidosis: PLAN: There is a diagnosis of sarcoidosis in the patient's old records. I do not know the etiology of this or how this was diagnosed. We will follow-up with the family for further information. It is possible that sarcoid could be an etiology for arrhythmias. (7) Obstructive sleep apnea: PLAN: The patient should be compliant with his CPAP. PLAN: Plan 1. Will load the patient with amiodarone 400 mg twice daily. 2. Obtain 2D echocardiogram. 3. Consider left heart catheterization. HPI Consult Data Date of Consult: 06/25/24 HPI Narrative Reason for Consultation: Ventricular tachyarrhythmia. HPI Narrative: WILLIAM BLANCO, is a 53 M who presents patient presents emergency department after developing shortness of breath and profound chest pressure. EMS was called and he was found to be in a tachycardia with a wide-complex. He received adenosine without conversion and was transported to emergency department where he was continuing to have significant chest symptoms and was sedated and cardioverted with a single 200 J synchronized shock. The patient did receive 150 mg bolus of amiodarone prior to cardioversion. Following conversion the patient went back into a sinus rhythm with occasional PACs and nonspecific QRS widening with a left anterior fascicular block. This was unchanged from an EKG we had in our office June 05, 2024. The patient was seen at that point in time because he had been in the emergency department for SVT where he was driving down the road and felt something funny happening in his chest he called a Highway Patrol who called EMS when EMS got to the site he was at a heart rate of 250 they gave him adenosine and he converted to sinus rhythm. The patient also has a history of an unexplained syncopal episode in December 2023. The patient is morbidly obese he weighs over 400 pounds he has a history of hyperlipidemia hypothyroidism and obstructive sleep apnea which he intermittently treats with CPAP. The patient was supposed to be on metoprolol but he has not been taking it. The patient is prediabetic as well. I did review the patient's post cardioversion ECG and the ECG in the wide- complex tachycardia [facility]. The consensus was that the patient is probably in ventricular tachycardia. The patient has a history of a cardiac event when he was 19 or 20 years old using methamphetamine. He absolutely denies any illicit drug use or being exposed to anything that would have been a stimulant. Currently the patient is resting comfortably on the gurney in the ER department he is alert but drowsy. He is able to answer questions and his is at the bedside. [facility] Medical History Prediabetes Myocardial infarction Urinary dribbling Anemia Abnormal EKG Hyperlipidemia Hypothyroidism Obesity GERD (gastroesophageal reflux disease) SVT (supraventricular tachycardia) Wears glasses Non-smoker CPAP (continuous positive airway pressure) dependence Sleep apnea Abnormal biopsy result (~2005) Home Medications ?Medication ?Instructions ?Recorded ?Last Taken ?Type metoprolol tartrate 25 mg tablet 25 mg PO BID #180 tab s 06/05/24 Unknown Rx Allergy/AdvReac Type Severity Reaction Status Date / Time codeine AdvReac Severe Vomiting Verified 06/05/24 10:36 Family History Mother Cancer LUNG Diabetes Hypertension Thyroid disorder Heart disease [facility] acquired PNA Aunt CAD (coronary artery disease) Heart disease Surgical History History of colonoscopy Social History adopted: No household members: spouse and other details: sister in law housing: house current occupational status: employed Smoking Status: Never smoker second hand exposure: Yes alcohol intake: former year quit: 1996 substance use type: does not use ROS Constitutional Constitutional: Reports as per HPI Eyes Eyes: Reports systems reviewed and no addt'l complaints, except as documented ENT HEENT: Reports systems reviewed and no addt'l complaints, except as documented Cardiovascular Cardiovascular: Reports as per HPI Respiratory/Chest Respiratory/Chest: Reports as per HPI Gastrointestinal Gastrointestinal: Reports as per HPI Genitourinary Genitourinary: Reports systems reviewed and no addt'l complaints, except as documented Musculoskeletal Musculoskeletal: Reports systems reviewed and no addt'l complaints, except as documented Integumentary Integumentary: Reports systems reviewed and no addt'l complaints, except as documented Neurologic Neurologic: Reports as per HPI Psychiatric Psychiatric: Reports as per HPI Endocrine Endocrinology: Reports as per HPI Hematologic/Lymphatic Hematologic/Lymphatic: Reports systems reviewed and no addt'l complaints, except as documented Allergic/Immunologic Allergic/Immunologic: Reports systems reviewed and no addt'l complaints, except as documented Physical Exam Narrative Patient is resting flat on the gurney in the emergency department he is easily arousable and answers questions appropriately. Const alert and oriented x3 HEENT normocephalic Eyes PERRL Neck no JVD Carotids: Negative for bruit Chest Chest Narrative: Increased AP diameter Resp Auscultation: diminished lung sounds bilateral lower Cardio Cardio Narrative: Distant heart tones due to AP diameter. Rate: regular rate Rhythm: regular rhythm Heart Sounds: S1 normal and S2 normal; Negative for click, gallop or murmur GI soft to palpation GI Narrative: Morbidly obese Extremity no pedal edema Neuro Neuro Narrative: Easily arousable and answers questions appropriately. Psych mental status grossly normal Risk Stratification Risk Stratification Applicable: No Charges/Coding Visit Charges Inpatient E&M: 91207 Init Hosp L3 Objective Data Vital Signs: Vital Signs Temp Pulse Resp BP Pulse Ox O2 Del Method O2 Flow Rate 97.4 F L 81 15 117/87 H 92 Room Air 6 06/25/24 14:22 06/25/24 14:30 06/25/24 14:30 06/25/24 14:30 06/25/24 14:30 06/25/24 14:30 06/25/24 14:20 Oxygen Flow Rate (L/min) [1 ( 6 Initial Baseline)] Oxygen Flow Rate (L/min) 6 Oxygen Delivery Method [1 ( Nasal Cannula Initial Baseline)] Oxygen Delivery Method Room Air Weight: 433 lb 13.915 oz Body Mass Index (BMI) 52.8 Intake & Output: Intake and Output for Last 24 Hours 06/23/24 06/24/24 06/25/24 23:59 23:59 23:59 Intake Total 500 / 500 Balance 500 / 500 Lab / Micro Data Attestation: I reviewed the patient's lab results. 06/25/24 14:07 06/25/24 14:07 Labs: Laboratory Results - last 24 hr 06/25/24 14:07: WBC 10.5, RBC 4.86, Hgb 14.8, Hct 44.0, MCV 90.5, MCH 30.5, MCHC 33.6, RDW Std Deviation 40.2, RDW Coeff of Gregory 12.4, Plt Count 257, MPV 12.1 H, Immature Gran % (Auto) 1.000 H, Neut % (Auto) 51.7, Lymph % (Auto) 35.8, [place] % (Auto) 9.1, Eos % (Auto) 1.8, Baso % (Auto) 0.6, Absolute Neuts (auto) 5.4, Absolute Lymphs (auto) 3.76, Nucleated RBC % 0 Rhythm Strip Rhythm Strip: Sinus Rhythm Rate: 80 Cardiology Labs/Tests 06/25/24 14:07: WBC 10.5, RBC 4.86, Hgb 14.8, Hct 44.0, MCV 90.5, MCH 30.5, MCHC 33.6, Plt Count 257, MPV 12.1 H, Immature Gran % (Auto) 1.000 H, Neut % (Auto) 51.7, Lymph % (Auto) 35.8, [place] % (Auto) 9.1, Eos % (Auto) 1.8, Baso % (Auto) 0.6, Absolute Neuts (auto) 5.4, Nucleated RBC % 0 Rhythm: EKG: ECHO: Stress Test: Cardiac Cath: PCI: CT Surgery: Holter monitor: EPS: PPM: CXR: Chest CT Scan:
--- NOTE | 2024-06-25 15:02 | EKG12_ITS ---
Test Reason : REPEAT X2 CP Blood Pressure : */* mmHG Vent. Rate : 78 BPM Atrial Rate : 78 BPM P-R Int : 206 ms QRS Dur : 136 ms QT Int : 426 ms P-R-T Axes : 57 -52 25 degrees QTcB Int : 485 ms Normal sinus rhythm Left axis deviation Nonspecific Intraventricular Conduction Delay Abnormal ECG Confirmed by Wil Daley ([id number]), editorial specialist MANDO MORGAN ([id number]) on 06/27/2024 6:53:35 AM Referred By: Confirmed By: Wil Daley
--- NOTE | 2024-06-25 15:08 | PCM.HP.STD ---
HPI - General General Date of Admission: 06/25/24 Date of Service: 06/25/24 Chief Complaint: Chest pain HPI Narrative WILLIAM BLANCO, is a 53 M who presented to [facility] ED on 06/25/2024 with chest pain. Patient was found by EMS to have severe tachycardia with concern for wide-complex ventricular tachycardia. On arrival to the ED he was confirmed to have a wide-complex tachycardia on the monitor. Heart rate was in the 240s to 250s. Patient was very symptomatic from a chest pain standpoint but was nonresponsive and his blood pressure was still normal. He underwent emergent cardioversion in the ED and was successfully cardioverted with 200 J with return to normal sinus rhythm. Cardiology evaluated the patient after cardioversion. Patient notably saw cardiology in the office recently for history of WENDI and SVT. Was prescribed Lopressor 25 mg twice daily but has not filled this medication. Cardiology noted that patient was given a dose of IV adenosine prior to cardioversion without conversion and was then given IV amiodarone 150 mg followed by synchronized cardioversion. Per cardiology, recommended admission to the ICU with p.o. amiodarone load and further cardiac evaluation. Hospitalist was then contacted for admission. I saw the patient at bedside in the ED, was present. Patient was fatigued appearing but otherwise laying back comfortably in bed, conversing normally, in no acute distress. He reported mild chest soreness currently but no chest pain like he had earlier. Denied any shortness of breath. Denied any lower leg swelling. No other acute concerns at this time. [facility] Medical History Prediabetes Myocardial infarction Urinary dribbling Anemia Abnormal EKG Hyperlipidemia Hypothyroidism Obesity GERD (gastroesophageal reflux disease) SVT (supraventricular tachycardia) Wears glasses Non-smoker CPAP (continuous positive airway pressure) dependence Sleep apnea Abnormal biopsy result (~2005) Home Medications ?Medication ?Instructions ?Recorded ?Last Taken ?Type metoprolol tartrate 25 mg tablet 25 mg PO BID #180 tabs 06/05/24 Unknown Rx Allergy/AdvReac Type Severity Reaction Status Date / Time codeine AdvReac Severe Vomiting Verified 06/05/24 10:36 Family History Mother Cancer LUNG Diabetes Hypertension Thyroid disorder [facility] Aunt CAD (coronary artery disease) Heart disease Surgical History History of colonoscopy Social History adopted: No household members: spouse and other details: sister in law housing: house current occupational status: employed Smoking Status: Never smoker second hand exposure: Yes alcohol intake: former year quit: 1996 substance use type: does not use ROS Constitutional Constitutional: Denies chills, fatigue, fever(s) or weakness Eyes Eyes: Denies change in vision Cardiovascular Cardiovascular: Reports chest pain and rapid heart rate; Denies dyspnea on exertion or edema Respiratory/Chest Respiratory/Chest: Denies cough or shortness of breath at rest Gastrointestinal Gastrointestinal: Denies abdominal pain Musculoskeletal Musculoskeletal: Denies arthralgias or myalgias Vital Signs Vital Signs Vital Signs: 06/25/24 14:04 06/25/24 14:10 06/25/24 14:12 Temperature 97.6 F L Temperature Source Temporal Pulse Rate 224 H Pulse Rate [1 (Initial Baseline)] 230 H Respiratory Rate 20 H Respiratory Rate [1 (Initial Baseline)] 18 Respiratory Effort Normal Respiratory Pattern Tachypnea Blood Pressure 141/130 H Blood Pressure [1 (Initial Baseline)] 141/130 H Blood Pressure Mean 133 Baseline BP Pulse Ox 96 Oxygen Delivery Method Room Air Oxygen Delivery Method [1 (Initial Baseline)] Nasal Cannula Oxygen Flow Rate (L/min) Oxygen Flow Rate (L/min) [1 (Initial Baseline)] 6 EtCo2 (Normal 35-45 , high quality CPR 10-20 & ROSC>/=40mmHg EtCo2 (Normal 35-45 , high quality CPR 10-20 & ROSC>/=40mmHg [1 (Initial Baseline)] 35 06/25/24 14:15 06/25/24 14:20 06/25/24 14:20 Temperature Temperature Source Pulse Rate 84 78 Pulse Rate [1 (Initial Baseline)] Respiratory Rate 16 15 Respiratory Rate [1 (Initial Baseline)] Respiratory Effort Respiratory Pattern Blood Pressure 124/81 H 130/82 H Blood Pressure [1 (Initial Baseline)] Blood Pressure Mean Baseline BP Pulse Ox 97 97 Oxygen Delivery Method Nasal Cannula Nasal Cannula Nasal Cannula Oxygen Delivery Method [1 (Initial Baseline)] Oxygen Flow Rate (L/min) 6 6 Oxygen Flow Rate (L/min) [1 (Initial Baseline)] EtCo2 (Normal 35-45 , high quality CPR 10-20 & ROSC>/=40mmHg 36 37 EtCo2 (Normal 35-45 , high quality CPR 10-20 & ROSC>/=40mmHg [1 (Initial Baseline)] 06/25/24 14:22 03 14:25 06/25/24 14:30 Temperature 97.4 F L Temperature Source Pulse Rate 230 H 82 Pulse Rate [1 (Initial Baseline)] Respiratory Rate 18 15 Respiratory Rate [1 (Initial Baseline)] Respiratory Effort Respiratory Pattern Blood Pressure 141/130 H 124/81 H Blood Pressure [1 (Initial Baseline)] Blood Pressure Mean Baseline BP 141/130 Pulse Ox 97 94 Oxygen Delivery Method Room Air Room Air Oxygen Delivery Method [1 (Initial Baseline)] Oxygen Flow Rate (L/min) Oxygen Flow Rate (L/min) [1 (Initial Baseline)] EtCo2 (Normal 35-45 , high quality CPR 10-20 & ROSC>/=40mmHg 37 39 EtCo2 (Normal 35-45 , high quality CPR 10-20 & ROSC>/=40mmHg [1 (Initial Baseline)] 06/25/24 14:30 Temperature Temperature Source Pulse Rate 81 Pulse Rate [1 (Initial Baseline)] Respiratory Rate 15 Respiratory Rate [1 (Initial Baseline)] Respiratory Effort Respiratory Pattern Blood Pressure 117/87 H Blood Pressure [1 (Initial Baseline)] Blood Pressure Mean Baseline BP Pulse Ox 92 Oxygen Delivery Method Room Air Oxygen Delivery Method [1 (Initial Baseline)] Oxygen Flow Rate (L/min) Oxygen Flow Rate (L/min) [1 (Initial Baseline)] EtCo2 (Normal 35-45 , high quality CPR 10-20 & ROSC>/=40mmHg 36 EtCo2 (Normal 35-45 , high quality CPR 10-20 & ROSC>/=40mmHg [1 (Initial Baseline)] Weight Weight: 196.8 kg Body Mass Index (BMI) 52.8 Physical Exam Const alert, oriented x3 and no apparent distress Constitutional Narrative: Middle-age male, class III obesity, mildly fatigued appearing but otherwise laying back comfortably in bed, conversing normally, in no acute distress. General Appearance: cooperative and comfortable HEENT normocephalic, head/scalp atraumatic, hearing grossly normal bilaterally, nasal mucous membranes and turbinates normal and moist oral mucous membranes Eyes PERRL, EOMs intact bilaterally and conjunctivae normal Neck full ROM Chest inspection of chest normal Resp normal respiratory effort, normal air movement, no use of accessory muscles and clear to auscultation bilaterally Cardio regular rate, regular rhythm, no murmurs and peripheral pulses 2+ throughout GI normal to inspection, nondistended, normoactive bowel sounds, soft to palpation, non-tender and non-distended Back/Spine normal ROM Extremity normal to inspection, full ROM and no pedal edema Skin no rashes or lesions noted Neuro moves all extremities and no focal motor deficits Speech: speech normal Motor Exam: strength 5/5 throughout Psych mental status grossly normal Results Lab / Micro Data 06/25/24 14:07 06/25/24 14:07 Labs: Laboratory Results - last 24 hr 06/25/24 14:07: WBC 10.5, RBC 4.86, Hgb 14.8, Hct 44.0, MCV 90.5, MCH 30.5, MCHC 33.6, RDW Std Deviation 40.2, RDW Coeff of Gregory 12.4, Plt Count 257, MPV 12.1 H, Immature Gran % (Auto) 1.000 H, Neut % (Auto) 51.7, Lymph % (Auto) 35.8, [place] % (Auto) 9.1, Eos % (Auto) 1.8, Baso % (Auto) 0.6, Absolute Neuts (auto) 5.4, Absolute Lymphs (auto) 3.76, Nucleated RBC % 0 Imaging Radiology Impression Chest X-Ray 06/25/24 14:40 IMPRESSION: 1. Limited hypoinflated portable exam. Grossly similar cardiomegaly with findings suggestive of volume overload including mild pulmonary edema, although atypical or multifocal pneumonia could have a similar appearance. 2. Mediastinal findings which could be projectional, related to vascular congestion, mediastinal lipomatosis, mediastinal lymphadenopathy, or other mediastinal process. Compare with any available more remote outside imaging to establish long-term stability. If unavailable, recommend follow-up CT chest, ideally with IV contrast. 3. Additional description as above. Reading Location: [id number] Assessment & Plan Assessment/Plan (1) Ventricular tachycardia: PLAN: Plan Patient is a 53-year-old male who presented [facility] ED on 06/25/24 with chest pain. 1. Ventricular tachycardia, recent history of SVT ? Admit under inpatient status to ICU. Cardiology following. Had recent episode of SVT in April with conversion back to sinus rhythm with adenosine. However on this presentation his rhythm was consistent with wide-complex ventricular tachycardia and did not convert with adenosine. S/p synchronized cardioversion and IV amiodarone 150 mg bolus in the ED with return to normal sinus rhythm. Per cardiology, recommended ICU admission with p.o. amiodarone 400 mg twice daily for loading. Continue cardiac monitoring. Pads to remain in place on patient for now. Echo ordered. Appreciate further cardiology recommendations. 2. Class III obesity with WENDI ? BMI 57 on admit. Encouraged lifestyle modifications. Complicates hospital course, care and prognosis. Continue CPAP at night. 3. Reported history of sarcoidosis ? There is a diagnosis of sarcoidosis in the patient's old records per cardiology. Unclear on any details regarding this. Cardiology to follow-up on this with family further. 4. Hypothyroidism ? Reported history of hypothyroidism but is not on Synthroid. TSH mildly elevated at 8 on admit. Free T4 ordered. DVT prophylaxis: Lovenox twice daily CODE STATUS: Full code, verified Expected disposition: Home, TBD Total clinical time spent by myself addressing the patient's medical issues, reviewing all the data, and collaborating with patient's care team: 55 minutes. Charges/Coding Visit Charges Inpatient E&M: 32137 Init Hosp L2
[2024-06-25 15:23] LABS: Lactic Acid 1.9 mmol/L (0.0-2.0)
[2024-06-25 15:40] LABS: Troponin T High Sensitivity 7 ng/L (<=22)
[2024-06-25 15:44] LABS: Anion Gap 12 (5-15); BUN 14 mg/dL (4-19); BUN/Creat Ratio 13.9 RATIO (10-20); Calcium,Total 9.7 mg/dL (7.6-11.0); Carbon Dioxide 24.6 mmol/L (21.0-32.0); Chloride 103 mmol/L (98-108); Creatinine, Serum 1.03 mg/dL (0.70-1.20); EST Glomerular Filtration Rate 88 (>60); Estimated Creatinine Clearance 156.97 ml/min (50-250); Glucose 129 mg/dL (70-99); Potassium 4.2 mmol/L (3.3-5.1); Sodium Level 139 mmol/L (133-145)
[2024-06-25 15:54] LABS: Pro- Brain NATRIURETIC PEPTIDE < 36 pg/mL (<=900)
[2024-06-25 17:34] LABS: Magnesium 2.2 mg/dL (1.5-2.2); Phosphorus 2.9 mg/dL (2.7-4.5)
--- NOTE | 2024-06-25 17:58 | ECHOCS_ITS ---
Reason For Study Reason For Study: CHEST PAIN, ARRHYTHMIA Procedure This was a 2D Doppler, Color Flow transthoracic echocardiogram. The study was technically difficult. Exam performed portable in ICU/CCU. Left Ventricle Mildly dilated left ventricle. Severe generalized hypokinesis of the left ventricle. Estimated LVEF 35%. Stage I diastolic dysfunction. Right Ventricle Normal right ventricle. Atria The left and right atria are normal. Mitral Valve Trivial mitral valve insufficiency. Tricuspid Valve The tricuspid valve is not well visualized. Aortic Valve Trisinus/trileaflet aortic valve. Pulmonic Valve The pulmonic valve is not well visualized. Great Vessels Normal sized aortic root. Pericardium/Pleural No pericardial effusion. Medication Diluted definity 4ml given slow IV push to enhance endocardial definition. MMode/2D Measurements & Calculations LVIDd: 6.0 cm IVSd: 0.85 cm Ao root diam: 3.5 cm LVIDs: 3.9 cm LVPWd: 1.1 cm FS: 34.5 % LAV(MOD-bp): 62.2 ml LVAd ap4: 32.5 cm2 SV(MOD-sp4): 45.4 ml LAV(MOD-bp) Indexed: 20.5 ml/m2 LVLd ap4: 7.5 cm SI(MOD-sp4): 15.0 ml/m2 LAV(MOD-sp2): 60.0 ml EDV(MOD-sp4): 112.9 ml LAV(MOD-sp4): 57.9 ml EDV(sp4-el): 119.3 ml LVAs ap4: 24.9 cm2 LVLs ap4: 7.4 cm ESV(MOD-sp4): 67.5 ml ESV(sp4-el): 71.3 ml EF(MOD-sp4): 40.2 % EF(sp4-el): 40.2 % SV(sp4-el): 47.9 ml LA A4 area: 19.3 cm2 LA dimension(2D): 3.2 cm RA A4 area: 15.4 cm2 TAPSE: 2.1 cm Time Measurements MV dec time: 0.24 sec Doppler Measurements & Calculations MV E max daniel: 79.9 cm/sec Lat Peak E' Daniel: 11.4 cm/sec Med Peak E' Daniel: 11.6 cm/sec MV A max daniel: 85.4 cm/sec E/E' lat: 7.0 E/E' med: 6.9 MV E/A: 0.94 Ao V2 max: 135.5 cm/sec LV V1 max: 91.1 cm/sec PA V2 max: 92.7 cm/sec Ao max P.3 mmHg LV V1 max P.3 mmHg ECHO/Echo Complete W/ Contrast Interpretation Summary Mildly dilated left ventricle. Severe generalized hypokinesis of the left ventricle. Estimated LVEF 35%. Stage I diastolic dysfunction. The study was technically difficult. Ordering Physician: Wil Daley Referring Physician: XIN FLYNN Performed By: Emily Cruz RDCS
[2024-06-25 18:30] LABS: TROPONIN VARIANCE 2 HR 13; Troponin T High Sens 2 HR 20 ng/L (<=22)
[2024-06-25 19:55] LABS: TROPONIN VARIANCE 4 HR 14; Troponin T High Sens 4 HR 22 ng/L (<=22)
[2024-06-25 22:36] LABS: Amphetamine Urine NEGATIVE (<1000 ng/mL); Barbiturate Urine NEGATIVE (< 200 ng/mL); Benzodiazepine Urine NEGATIVE (< 200 ng/mL); Buprenorphine Urine NEGATIVE (< 200 ng/mL); Cocaine Urine NEGATIVE (< 300 ng/mL); Fentanyl, Urine NEGATIVE; Methadone Urine NEGATIVE (< 300 ng/mL); Opiates Urine NEGATIVE (< 300 ng/mL); Oxycodone, Urine NEGATIVE (< 100 ng/mL); PCP Urine NEGATIVE (< 25 ng/mL); THC Urine NEGATIVE (< 50 ng/mL)
[2024-06-25] MEDS: Amiodarone 200 MG Tablet 400 MG PO (22:38)
[2024-06-25] MEDS: Enoxaparin 40 MG/0.4 ML Syringe SC (22:39)
[2024-06-26] VITALS (23 sets, daily range): BP systolic 98–141; BP diastolic 54–130; PULSE 56–72; RESP 10–20; TEMP 36.3–36.8; O2SAT 90–98; BMI 56.8
--- NOTE | 2024-06-26 00:12 | PCM.HOSP.N ---
Hospitalist Note Patient now reporting active ongoing EtOH intake with at least 8 beers daily. Evidence of withdrawal. Will place on phenobarb taper. He notes ativan causes severe agitation thus will defer. kiran Dodd requested. Maintain on MVI/Thiamine/Folic acid.
[2024-06-26 04:29] LABS: Mean Corp Hgb Conc 33.3 g/dL (32-36); Mean Corpuscular Hgb 30.4 pg (27.0-32.0); Mean Corpuscular Volume 91.1 fL (80-94); Mean Platelet Vol. 11.8 fl (6.2-12.0); Platelet Count 163 K/mm3 (150-450); RBC Distribution Width CV 12.5 % (11.6-14.6); RBC Distribution Width SD 41.1 fl (35.1-43.9); Red Blood Count 4.28 M/mm3 (4.6-6.2); White Blood Count 7.3 K/mm3 (4.4-11.0)
[2024-06-26 04:54] LABS: Anion Gap 9 (5-15); BUN 11 mg/dL (4-19); BUN/Creat Ratio 14.4 RATIO (10-20); Carbon Dioxide 25.1 mmol/L (21.0-32.0); Chloride 106 mmol/L (98-108); Creatinine, Serum 0.77 mg/dL (0.70-1.20); EST Glomerular Filtration Rate 109 (>60); Glucose 105 mg/dL (70-99); Potassium 4.1 mmol/L (3.3-5.1); Sodium Level 141 mmol/L (133-145)
--- NOTE | 2024-06-26 08:07 | PN.CARD_ITS ---
Subjective Subjective Patient is resting comfortably in bed this morning in no apparent distress. He is having occasional PVCs on his rhythm strip. He has had no recurrence of the atrial fibrillation he has had 2 doses now of amiodarone 400 mg in the twice daily dosing. The patient's troponins were negative for an acute event on this presentation. He was cardioverted in the emergency department out of the VT. Objective Data Vital Signs: Vital Signs Temp Pulse Resp BP Pulse Ox O2 Del Method O2 Flow Rate 97.7 F L 70 12 131/85 H 95 Room Air 2 06/26/24 04:00 06/26/24 07:43 06/26/24 07:00 06/26/24 07:00 06/26/24 07:49 06/26/24 07:49 06/25/24 16:30 Oxygen Flow Rate (L/min) [1 ( 6 Initial Baseline)] Oxygen Flow Rate (L/min) 2 Oxygen Delivery Method [1 ( Nasal Cannula Initial Baseline)] Oxygen Delivery Method Room Air Weight: 419 lb 1.58 oz Body Mass Index (BMI) 56.8 Intake & Output: Intake and Output for Last 24 Hours 06/24/24 06/25/24 06/26/24 23:59 23:59 23:59 Intake Total 500 / 500 Output Total 700 / 700 Balance -200 / -200 Lab / Micro Data 06/26/24 04:20 06/26/24 04:20 Labs: Laboratory Results - last 24 hr 06/25/24 14:07: WBC 10.5, RBC 4.86, Hgb 14.8, Hct 44.0, MCV 90.5, MCH 30.5, MCHC 33.6, RDW Std Deviation 40.2, RDW Coeff of Gregory 12.4, Plt Count 257, MPV 12.1 H, Immature Gran % (Auto) 1.000 H, Neut % (Auto) 51.7, Lymph % (Auto) 35.8, [place] % (Auto) 9.1, Eos % (Auto) 1.8, Baso % (Auto) 0.6, Absolute Neuts (auto) 5.4, Absolute Lymphs (auto) 3.76, Nucleated RBC % 0, Sodium 139, Potassium 4.2, Chloride 103, Carbon Dioxide 24.6, Anion Gap 12, BUN 14, Creatinine 1.03, Estim Creat Clear Calc 156.97, Est GFR (MDRD) Non-Af 88, BUN/Creatinine Ratio 13.9, G lucose 129 H, Calcium 9.7, Phosphorus 2.9, Magnesium 2.2, Troponin T High Sens 7, NT pro BNP II < 36, TSH 8.370 H 06/25/24 14:20: Lactic Acid 1.9 06/25/24 17:30: Troponin T Hi Sens 2 Hr 20, Troponin T Hi Sens 2Hr Delta 13 06/25/24 19:25: Troponin T Hi Sens 4Hr 22, Troponin T Hi Sens 4Hr Delta 14, Free T4 0.80 06/25/24 22:00: Urine Opiates Screen NEGATIVE, U Buprenorphine Qual NEGATIVE, Ur Oxycodone Screen NEGATIVE, Urine Methadone Screen NEGATIVE, Urine Fentanyl Screen NEGATIVE, Ur Barbiturates Screen NEGATIVE, Ur Phencyclidine Scrn NEGATIVE, Ur Amphetamines Screen NEGATIVE, U Benzodiazepines Scrn NEGATIVE, Urine Cocaine Screen NEGATIVE, U Cannabinoids Screen NEGATIVE 06/26/24 04:20: WBC 7.3, RBC 4.28 L, Hgb 13.0, Hct 39.0 L, MCV 91.1, MCH 30.4, MCHC 33.3, RDW Std Deviation 41.1, RDW Coeff of Gregory 12.5, Plt Count 163, MPV 11.8, Sodium 141, Potassium 4.1, Chloride 106, Carbon Dioxide 25.1, Anion Gap 9, BUN 11, Creatinine 0.77, Estim Creat Clear Calc 197.20, Est GFR (MDRD) Non-Af 109, BUN/Creatinine Ratio 14.4, Glucose 105 H, Calcium 9.0 Rhythm Strip Rhythm Strip: Sinus Rhythm Rate: 65 Ectopy: PVC(s) Cardiology Labs/Tests 06/25/24 14:07: WBC 10.5, RBC 4.86, Hgb 14.8, Hct 44.0, MCV 90.5, MCH 30.5, MCHC 33.6, Plt Count 257, MPV 12.1 H, Immature Gran % (Auto) 1.000 H, Neut % (Auto) 51.7, Lymph % (Auto) 35.8, [place] % (Auto) 9.1, Eos % (Auto) 1.8, Baso % (Auto) 0.6, Absolute Neuts (auto) 5.4, Nucleated RBC % 0, Sodium 139, Potassium 4.2, Chloride 103, Carbon Dioxide 24.6, Anion Gap 12, BUN 14, Creatinine 1.03, Est GFR (MDRD) Non-Af 88, BUN/Creatinine Ratio 13.9, Glucose 129 H, Calcium 9.7, Phosphorus 2.9, Magnesium 2.2 06/25/24 14:20: Lactic Acid 1.9 06/26/24 04:20: WBC 7.3, RBC 4.28 L, Hgb 13.0, Hct 39.0 L, MCV 91.1, MCH 30.4, MCHC 33.3, Plt Count 163, MPV 11.8, Sodium 141, Potassium 4.1, Chloride 106, Carbon Dioxide 25.1, Anion Gap 9, BUN 11, Creatinine 0.77, Est GFR (MDRD) Non-Af 109, BUN/Creatinine Ratio 14.4, Glucose 105 H, Calcium 9.0 Rhythm: EKG: ECHO: Stress Test: Cardiac Cath: PCI: CT Surgery: Holter monitor: EPS: PPM: CXR: Chest CT Scan: Radiography Diagnostic Testing: Radiology Impression Chest X-Ray 06/25/24 14:40 IMPRESSION: 1. Limited hypoinflated portable exam. Grossly similar cardiomegaly with findings suggestive of volume overload including mild pulmonary edema, although atypical or multifocal pneumonia could have a similar appearance. 2. Mediastinal findings which could be projectional, related to vascular congestion, mediastinal lipomatosis, mediastinal lymphadenopathy, or other mediastinal process. Compare with any available more remote outside imaging to establish long-term stability. If unavailable, recommend follow-up CT chest, ideally with IV contrast. 3. Additional description as above. Reading Location: [facility] Physical Exam Narrative Patient resting comfortably flat in bed. Const alert and oriented x3 HEENT normocephalic Eyes PERRL Neck no carotid bruits Chest Chest Narrative: Increased AP diameter. Resp normal respiratory effort and clear to auscultation bilaterally Cardio regular rate, regular rhythm, S1 normal heart sound, S2 normal heart sound, no murmurs, no rub and no gallops GI GI Narrative: Obese Extremity no pedal edema Neuro Neuro Narrative: Alert and oriented x 3 Psych mental status grossly normal Assessment & Plan Assessment/Plan (1) Ventricular tachycardia: PLAN: Patient had sustained ventricular tachycardia that required direct-current cardioversion in the emergency department due to ongoing chest pains on admission. He has had no recurrence of VT he has been started on an amiodarone load at 400 mg twice daily. He has had occasional PVCs on telemetry. His electrolytes and renal function are all within normal ranges. He has not had any profound hypoxia. He does have a history of sarcoidosis that I am still trying to find out how this was diagnosed. The patient will require EP evaluation and prior to that we definitively need to rule out coronary artery disease as the etiology of this VT. His weight is 419 pounds he will be accommodated on the cath table and I have recommended a left heart catheterization to definitively rule out coronary artery disease. He is not amenable for functional stress testing. Patient's left heart catheterization shows normal coronary arteries with no significant atherosclerotic disease. However, the right coronary arises from a common ostium of the left main trunk from the left coronary sinus. It courses in a straight line across the top of the heart. We do need to definitively rule out a possible compression syndrome with the artery going between the pulmonary artery and aorta. A CTA will be performed. The patient will need to be evaluated by EP for further evaluation of the arrhythmia. His LV function appears to be 30% by LV gram the echocardiogram read it was 35%. (2) Chest pressure: PLAN: Patient's chest pressure occurred while he was being treated for his ventricular tachycardia in the ED. It has not recurred. His enzymes have been negative for an acute ischemic event on this presentation. (3) Adult BMI 50.0-59.9 kg/sq m: PLAN: Patient has steadily gained weight over the last several years. I had discussed earlier in the office about the mandatory nature to work on weight loss. (4) Sarcoidosis: PLAN: We are trying to confirm the diagnosis of sarcoidosis as potentially this could have a myocardial impact. A 2D echocardiogram will be evaluated and potentially the patient may need cardiac MR. PLAN: Plan 1. Proceed with left heart catheterization today. 2. Further recommendations pending the outcome of the catheterization. Charges/Coding Visit Charges Inpatient E&M: 34908 Subs Hosp L3
--- NOTE | 2024-06-26 08:18 | PCM.PN.HOSP ---
Reason for Visit Reason for Visit: Diagnoses Sarcoidosis, unspecified (06/25/24) Pure hypercholesterolemia, unspecified (06/25/24) Obstructive sleep apnea (adult) (pediatric) (06/25/24) Ventricular tachycardia, unspecified (06/25/24) Other chest pain (06/25/24) Abnormal electrocardiogram [ECG] [EKG] (06/25/24) Body mass index [BMI] 50.0-59.9, adult (06/25/24) Subjective Subjective Patient is a 53-year-old gentleman who presented with chest discomfort as well as near syncope. Patient was found to have ventricular tachycardia underwent synchronized cardioversion in the ED with initiation of amiodarone admitted to the intensive care unit for subsequent management Objective Data Objective Data Vital Signs: Vital Signs Temp Pulse Resp BP Pulse Ox O2 Del Method O2 Flow Rate 97.7 F L 70 12 131/85 H 95 Room Air 2 06/26/24 04:00 06/26/24 07:43 06/26/24 07:00 06/26/24 07:00 06/26/24 07:49 06/26/24 07:49 06/25/24 16:30 Oxygen Flow Rate (L/min) [1 ( 6 Initial Baseline)] Oxygen Flow Rate (L/min) 2 Oxygen Delivery Method [1 ( Nasal Cannula Initial Baseline)] Oxygen Delivery Method Room Air Weight: 190.1 kg Body Mass Index (BMI) 56.8 Intake & Output: Intake and Output for Last 24 Hours 06/24/24 06/25/24 06/26/24 23:59 23:59 23:59 Intake Total 500 / 500 Output Total 700 / 700 Balance -200 / -200 Lab / Micro Data 06/26/24 04:20 06/26/24 04:20 Labs: Laboratory Results - last 24 hr 06/25/24 14:07: WBC 10.5, RBC 4.86, Hgb 14.8, Hct 44.0, MCV 90.5, MCH 30.5, MCHC 33.6, RDW Std Deviation 40.2, RDW Coeff of Gregory 12.4, Plt Count 257, MPV 12.1 H, Immature Gran % (Auto) 1.000 H, Neut % (Auto) 51.7, Lymph % (Auto) 35.8, [place] % (Auto) 9.1, Eos % (Auto) 1.8, Baso % (Auto) 0.6, Absolute Neuts (auto) 5.4, Absolute Lymphs (auto) 3.76, Nucleated RBC % 0, Sodium 139, Potassium 4.2, Chloride 103, Carbon Dioxide 24.6, Anion Gap 12, BUN 14, Creatinine 1.03, Estim Creat Clear Calc 156.97, Est GFR (MDRD) Non-Af 88, BUN/Creatinine Ratio 13.9, Glucose 129 H, Calcium 9.7, Phosphorus 2.9, Magnesium 2.2, Troponin T High Sens 7, NT pro BNP II < 36, TSH 8.370 H 06/25/24 14:20: Lactic Acid 1.9 06/25/24 17:30: Troponin T Hi Sens 2 Hr 20, Troponin T Hi Sens 2Hr Delta 13 06/25/24 19:25: Troponin T Hi Sens 4Hr 22, Troponin T Hi Sens 4Hr Delta 14, Free T4 0.80 06/25/24 22:00: Urine Opiates Screen NEGATIVE, U Buprenorphine Qual NEGATIVE, Ur Oxycodone Screen NEGATIVE, Urine Methadone Screen NEGATIVE, Urine Fentanyl Screen NEGATIVE, Ur Barbiturates Screen NEGATIVE, Ur Phencyclidine Scrn NEGATIVE, Ur Amphetamines Screen NEGATIVE, U Benzodiazepines Scrn NEGATIVE, Urine Cocaine Screen NEGATIVE, U Cannabinoids Screen NEGATIVE 06/26/24 04:20: WBC 7.3, RBC 4.28 L, Hgb 13.0, Hct 39.0 L, MCV 91.1, MCH 30.4, MCHC 33.3, RDW Std Deviation 41.1, RDW Coeff of Gregory 12.5, Plt Count 163, MPV 11.8, Sodium 141, Potassium 4.1, Chloride 106, Carbon Dioxide 25.1, Anion Gap 9, BUN 11, Creatinine 0.77, Estim Creat Clear Calc 197.20, Est GFR (MDRD) Non-Af 109, BUN/Creatinine Ratio 14.4, Glucose 105 H, Calcium 9.0 Radiography Diagnostic Testing: Radiology Impression Chest X-Ray 06/25/24 14:40 IMPRESSION: 1. Limited hypoinflated portable exam. Grossly similar cardiomegaly with findings suggestive of volume overload including mild pulmonary edema, although atypical or multifocal pneumonia could have a similar appearance. 2. Mediastinal findings which could be projectional, related to vascular congestion, mediastinal lipomatosis, mediastinal lymphadenopathy, or other mediastinal process. Compare with any available more remote outside imaging to establish long-term stability. If unavailable, recommend follow-up CT chest, ideally with IV contrast. 3. Additional description as above. Reading Location: [id number] Rhythm Strip Rhythm Strip: Sinus Rhythm Rate: 65 Ectopy: PVC(s) Physical Exam Narrative GENERAL: cooperative HEENT: Atraumatic; normocephalic EYES; Anicteric, Normal Conjunctiva NECK; supple, normal thyroid, RESPIRATORY: Diminished to auscultation CARDIOVASCULAR: Regular S1 S2, GI: soft, normoactive bowel sounds, : No Renal angle tenderness; EXTREMITIES: No edema, no clubbing, MUSCULOSKELETAL: no muscle wasting NEURO: Awake; no lateralizing signs. SKIN: No Rash PSYCH; Flat affect Assessment & Plan Assessment/Plan (1) Ventricular tachycardia: PLAN: Plan Patient is a 53-year-old gentleman who presented with chest discomfort as well as near syncope. Patient was found to have ventricular tachycardia underwent synchronized cardioversion in the ED with initiation of amiodarone admitted to the intensive care unit for subsequent management Sustained ventricular tachycardia ? Patient underwent successful synchronized cardioversion in the ED subsequently admitted to the intensive care unit for continuous telemetry. Patient was started on amiodarone seen in consultation by cardiology 2D echo ordered cardiology recommended for patient to undergo left heart catheterization 2. Chest pain ? Suspected to be secondary to patient ventricular tachycardia given his presentation cardiology recommends for patient to undergo left heart catheterization with intervention if warranted 3. Class III obesity with BMI of 56.8 ? Complicating care weight loss advised 4. Obstructive sleep apnea ? Consistent use of CPAP therapy encouraged 5. Reported history of sarcoidosis ? Old records ordered 6. Hypothyroidism ? Per history patient not on any thyroid supplement. TSH ordered came back at 8.370 patient started on levothyroxine 25 mcg daily 7. DVT prophylaxis ? On enoxaparin Time spent in the patient's overall evaluation,decision-making process, review of diagnostic data, adjustment of management, discussion with other providers, nursing nursing and ancillary staff involved in patient's care documentation, 50 Minutes Charges/Coding Visit Charges Inpatient E&M: 50965 Subs Hosp L3
--- NOTE | 2024-06-26 09:59 | CASEMGMT ---
Insurance review for hospitals In-network with [facility] insurance if transfer is recommended is as follows: [facility], [facility], [place], [facility], [facility], [facility], , [place], [facility], [facility], and [place]. Malena Sullivan, Discharge Planning Asst.
--- NOTE | 2024-06-26 11:11 | CL.D_ITS ---
Patient Name: WILLIAM BLANCO Study Date: 06/26/2024 Performing: Hetal Meyers MD Ht: 76 inches 193.04 cm : 1970 Wt: 419.6 lbs 190.1 kg Age: 53 Gender: male BSA: 3.03 PROCEDURE(S) PERFORMED DC01-([id number])LHC/COR/LV CLINICAL PROFILE AND INDICATIONS Indications: Cardiac Arrythmia, Suspected CAD Heart Failure: None Stress/Imaging Stress/Image Study Performed: No CAD Presentations: No Sxs, no angina. CONCLUSIONS Normal coronary arteries RCA appears to have a common ostium with LMCA with an anterior take-off LVEF 30%. Non-ischemic cardiomyopathy RECOMMENDATIONS Medical therapy DESCRIPTION OF PROCEDURE The patient arrived to the procedure lab. The risks and benefits of the procedure as well as a full description of our services here and current unavailability of surgical backup were fully explained to the patient and/or their significant other prior to the catheterization. The Timeout was completed, verifying the correct patient and procedure. The patient's procedural site was prepped and draped in the usual fashion. Local anesthetic was given subcutaneously to right radial region with Lidocaine 2%. Using a modified Seldinger technique, arterial access was obtained via the right radial artery, a 6Fr sheath was inserted. LV to AO pullback pressures were then recorded. Left Coronary Artery selective angiography was performed in multiple views using a 5 Fr. JL3 catheter. Left Coronary Artery selective angiography was performed in multiple views using a 5 Fr. JR 4 catheter. Right Coronary Artery selective angiography was then performed in multiple views using a 5 Fr. JR 4 catheter. Left Ventriculography was performed in SAUNDERS projection using a 5 Fr. Pigtail catheter. LV to AO pullback pressures were then recorded.The arterial sheath was pulled and a TR Band was applied for hemostasis CORONARY ANGIOGRAPHY DOMINANCE: Right Dominant LEFT HEART ASSESSMENT Left Ventricular Ejection Fraction: by LV Gram 30 % LVEDP: 34 mmHg LEFT MAIN: Angiographically normal LEFT ANTERIOR DESCENDING ARTERY: Angiographically normal CIRCUMFLEX ARTERY: Angiographically normal RIGHT CORONARY ARTERY: Angiographically normal COMPLICATIONS No Complications PROCEDURE MEDICATIONS Versed 1 mg IV Fentanyl 50 mcg IV Oxygen: 2 L/min via nasal cannula Oxygen: 4 L/min via nasal cannula Aspirin (325mg) 1 Tabs PO @ 06/26/2024 09:35:42 Heparin given IA 06/26/2024 10:00:07 Heparin 2000 unit(s) IV 06/26/2024 10:05:21 Verapamil 2.5mg, Ntg 200mcgs, 2000 units of Heparin given IA 06/26/2024 10:00:07 SUMMARY OF HEMODYNAMIC DATA Time AIR REST ECG 09:34:31 AO 136/88 (104) SA 10:02:33 LV 127/22, 34 10:06:45 LVp 122/24, 33 10:06:58 AOp 131/84 (104) 10:07:05 LV 135/20, 30 10:26:13 LV 140/22, 31 10:26:22 LV 138/30, 39 10:27:54 LVp 138/26, 39 10:27:58 AOp 145/87 (110) 10:28:05 Signed By Hetal Meyers MD On 06/26/2024 11:10:58 Hetal Meyers MD
[2024-06-26] MEDS: Amiodarone 200 MG Tablet 400 MG PO ×2 (11:12→20:25)
[2024-06-26] MEDS: Acetaminophen 325 MG Tablet 650 MG PO (11:15)
[2024-06-26] MEDS: Acetaminophen 500 MG Tablet 1000 MG PO (13:26)
--- NOTE | 2024-06-26 13:43 | PCM.DC.SUM ---
Providers Date of Admission: 06/25/24 Date of Discharge: 06/26/24 Primary Care Physician: JOSE Frank Consultations 06/25/24 21:17 Consult: Cardiology Routine Consulting Provider: Wil Daley Reason for Consult: v tach EMERGENT Consult: No MD Notified: Yes Date Notified: 06/25/24 Time Notified: 15:35 Method of Notification: notified by nightshift RN Reason For Visit: V TACH S/P CARDIOVERSION Diagnosis Discharge Diagnosis (1) Ventricular tachycardia: Status: Acute Code(s): I47.20 - Ventricular tachycardia, unspecified (2) Chest pressure: Status: Acute Code(s): R07.89 - Other chest pain (3) Adult BMI 50.0-59.9 kg/sq m: Status: Acute Code(s): Z68.43 - Body mass index [BMI] 50.0-59.9, adult (4) Sarcoidosis: Status: Acute Code(s): D86.9 - Sarcoidosis, unspecified Plan Patient is a 53-year-old gentleman who presented with chest discomfort as well as near syncope. Patient was found to have ventricular tachycardia underwent synchronized cardioversion in the ED with initiation of amiodarone admitted to the intensive care unit for subsequent management 1. Sustained ventricular tachycardia ? Patient underwent successful synchronized cardioversion in the ED subsequently admitted to the intensive care unit for continuous telemetry. Patient was started on amiodarone seen in consultation by cardiology 2D echo ordered cardiology recommended for patient to undergo left heart catheterization ? Patient left heart catheterization demonstrated normal coronary arteries RCA appears to have a common ostium with LMCA with an anterior take-off LVEF 30%. Non-ischemic cardiomyopathy. Dr. Daley with cardiology arranged for patient to be transferred to be evaluated at [facility] in [place] 2. Chest pain ? Suspected to be secondary to patient ventricular tachycardia given his presentation cardiology recommends for patient to undergo left heart catheterization with intervention if warranted 3. Class III obesity with BMI of 56.8 ? Complicating care weight loss advised 4. Obstructive sleep apnea ? Consistent use of CPAP therapy encouraged 5. Reported history of sarcoidosis ? Old records ordered 6. Hypothyroidism ? Per history patient not on any thyroid supplement. TSH ordered came back at 8.370 patient started on levothyroxine 25 mcg daily 7. DVT prophylaxis ? On enoxaparin Time spent in the patient's overall evaluation,decision-making process, review of diagnostic data, adjustment of management, discussion with other providers, nursing nursing and ancillary staff involved in patient's care documentation, 50 Minutes Medications at Discharge Home Medications metoprolol tartrate 25 mg tablet 25 mg PO BID #180 tabs 06/05/24 levothyroxine 25 mcg tablet 25 mcg PO DAILY@0600 #90 tabs 06/26/24 Physical Exam Narrative GENERAL: cooperative HEENT: Atraumatic; normocephalic EYES; Anicteric, Normal Conjunctiva NECK; supple, normal thyroid, RESPIRATORY: Diminished to auscultation CARDIOVASCULAR: Regular S1 S2, GI: soft, normoactive bowel sounds, : No Renal angle tenderness; EXTREMITIES: No edema, no clubbing, MUSCULOSKELETAL: no muscle wasting NEURO: Awake; no lateralizing signs. SKIN: No Rash PSYCH; Flat affect Weight / BMI Weight Weight: 190.1 kg Body Mass Index (BMI) 56.8 ABG / Lab / Microbiology Data 06/26/24 04:20 06/26/24 04:20 Laboratory: Laboratory Results - last 24 hr 06/25/24 14:07: WBC 10.5, RBC 4.86, Hgb 14.8, Hct 44.0, MCV 90.5, MCH 30.5, MCHC 33.6, RDW Std Deviation 40.2, RDW Coeff of Gregory 12.4, Plt Count 257, MPV 12.1 H, Immature Gran % (Auto) 1.000 H, Neut % (Auto) 51.7, Lymph % (Auto) 35.8, [place] % (Auto) 9.1, Eos % (Auto) 1.8, Baso % (Auto) 0.6, Absolute Neuts (auto) 5.4, Absolute Lymphs (auto) 3.76, Nucleated RBC % 0, Sodium 139, Potassium 4.2, Chloride 103, Carbon Dioxide 24.6, Anion Gap 12, BUN 14, Creatinine 1.03, Estim Creat Clear Calc 156.97, Est GFR (MDRD) Non-Af 88, BUN/Creatinine Ratio 13.9, Glucose 129 H, Calcium 9.7, Phosphorus 2.9, Magnesium 2.2, Troponin T High Sens 7, NT pro BNP II < 36, TSH 8.370 H 06/25/24 14:20: Lactic Acid 1.9 06/25/24 17:30: Troponin T Hi Sens 2 Hr 20, Troponin T Hi Sens 2Hr Delta 13 06/25/24 19:25: Troponin T Hi Sens 4Hr 22, Troponin T Hi Sens 4Hr Delta 14, Free T4 0.80 06/25/24 22:00: Urine Opiates Screen NEGATIVE, U Buprenorphine Qual NEGATIVE, Ur Oxycodone Screen NEGATIVE, Urine Methadone Screen NEGATIVE, Urine Fentanyl Screen NEGATIVE, Ur Barbiturates Screen NEGATIVE, Ur Phencyclidine Scrn NEGATIVE, Ur Amphetamines Screen NEGATIVE, U Benzodiazepines Scrn NEGATIVE, Urine Cocaine Screen NEGATIVE, U Cannabinoids Screen NEGATIVE 06/26/24 04:20: WBC 7.3, RBC 4.28 L, Hgb 13.0, Hct 39.0 L, MCV 91.1, MCH 30.4, MCHC 33.3, RDW Std Deviation 41.1, RDW Coeff of Gregory 12.5, Plt Count 163, MPV 11.8, Sodium 141, Potassium 4.1, Chloride 106, Carbon Dioxide 25.1, Anion Gap 9, BUN 11, Creatinine 0.77, Estim Creat Clear Calc 197.20, Est GFR (MDRD) Non-Af 109, BUN/Creatinine Ratio 14.4, Glucose 105 H, Calcium 9.0 Radiography Diagnostic Testing: Radiology Impression Chest X-Ray 06/25/24 14:40 IMPRESSION: 1. Limited hypoinflated portable exam. Grossly similar cardiomegaly with findings suggestive of volume overload including mild pulmonary edema, although atypical or multifocal pneumonia could have a similar appearance. 2. Mediastinal findings which could be projectional, related to vascular congestion, mediastinal lipomatosis, mediastinal lymphadenopathy, or other mediastinal process. Compare with any available more remote outside imaging to establish long-term stability. If unavailable, recommend follow-up CT chest, ideally with IV contrast. 3. Additional description as above. Reading Location: [id number] Echocardiogram 06/25/24 17:58 Interpretation Summary Mildly dilated left ventricle. Severe generalized hypokinesis of the left ventricle. Estimated LVEF 35%. Stage I diastolic dysfunction. The study was technically difficult. Ordering Physician: Wil Daley Referring Physician: XIN SHELTON Performed By: Emily Cruz RDCS D/C Instructions Discharge Diet: No restrictions Discharge Activity: Return to Normal Activity Call your doctor if you observe: Fever of 101 or Higher, Shortness of breath, Fainting spells and Chest pain DC O2, CPAP, BIPAP Needs Home O2 Discharge instructions: No Meaningful Use Info Meaningful Use Meaningful Use Diagnoses (Choose all that apply): None applicable Ischemic Stroke Statin Dosing Therapy Reference: STATIN DOSE THERAPY REFERENCE: * Patients > 75 years receive moderate or high dose statin therapy. * Patients 75 years or YOUNGER should receive HIGH intensity statin dose unless contraindicated. You will be required to document reason for non-treatment if statin daily dose does not meet guidelines. HIGH DOSE STATIN THERAPY DAILY Atorvastatin > than or = to 40 mg Rosuvastatin > than or = to 20 mg Amlodipine + Atorvastatin > than or = to 2.5/40 mg Ezetimibe + Simvastatin 10/80 mg Simvastatin 80mg Discharge Plan Admission Admit Date/Time: 06/25/24 15:30 Attending Provider: Scot Nunez Primary Care Provider: Xin Shelton Consulting Providers: Triston Zhang; Wil Daley Discharge Orders/Prescriptions Prescriptions: New levothyroxine 25 mcg Tablet 25 mcg PO DAILY@0600 Qty: 90 0RF Continued metoprolol tartrate 25 mg tablet 25 mg PO BID Qty: 180 3RF Referrals / Follow Up: Xin Shelton, [employer] [facility] [Primary Care Provider] - Disposition Disposition (needs filled in before D/C Order can be placed): Acute Care Hospital Charges/Coding Visit Charges Inpatient E&M: 07343 Disch Hosp >30min
[2024-06-26] MEDS: Enoxaparin 40 MG/0.4 ML Syringe SC (20:25)
== END 2024-06-26 23:35 | disposition short-term general hospital (02) | DRG 287 ==
LOC: ED 15:01 → ICU 06-26 07:16
PROVIDERS: Admitting Provider Hospitalist; Emergency Provider Emergency Medicine; PCP Nurse Practitioner Family; Visit Provider Internal Medicine
DX: I47.20 Ventricular tachycardia, unspecified (principal); Z68.43 Body mass index [BMI] 50.0-59.9, adult; I42.8 Other cardiomyopathies; Q24.5 Malformation of coronary vessels; E03.9 Hypothyroidism, unspecified; E66.01 Morbid (severe) obesity due to excess calories; E78.00 Pure hypercholesterolemia, unspecified; G47.33 Obstructive sleep apnea (adult) (pediatric); D86.9 Sarcoidosis, unspecified; I25.2 Old myocardial infarction; R73.03 Prediabetes; T44.7X6A Underdosing of beta-adrenoreceptor antagonists, initial encounter; Z91.148 Patient's other noncompliance with medication regimen for other reason
CPT/HCPCS: 71045; 80048; 80307; 83605; 83735; 83880; 84100; 84439; 84443; 84484; 85025; 85027; 92960; 93005; 93306; 93458; 94668; 94762; 97802; 99152; 99153; 99285; Q9957; Q9967; A4216; C1769; C1887; C1894; C8929; J2405

== ENCOUNTER → 2024-09-02 | Outpatient (CLI) | payer BC, SELFPAY ==
--- NOTE | 2024-09-02 12:39 | ECHOLC_ITS ---
Reason For Study Reason For Study: CARDIOMYOPATHY Procedure This was a limited 2D transthoracic echocardiogram. The study was technically difficult. Exam performed in department. Left Ventricle Normal LV size. The estimated ejection fraction is 48 %. There is mild global hypokinesis of the left ventricle. Right Ventricle Normal RV size. Normal systolic function. Mitral Valve Normal mitral valve. Tricuspid Valve Normal tricuspid valve. Aortic Valve Trisinus/trileaflet aortic valve. Pulmonic Valve Normal pulmonic valve. Great Vessels Normal aortic root. The pulmonary artery is normal size. Normal inferior vena cava. Pericardium/Pleural No pericardial effusion. Medication 22 gauge I.V. with prn adaptor inserted into left arm. Diluted definity 4ml given slow IV push to enhance endocardial definition. MMode/2D Measurements & Calculations LVIDd: 5.5 cm IVSd: 1.1 cm Ao root diam: 3.3 cm LVIDs: 4.0 cm LVPWd: 1.1 cm FS: 26.1 % LVAd ap4: 36.2 cm2 SV(MOD-sp4): 55.2 ml SV(sp4-el): 62.6 ml LVLd ap4: 8.5 cm SI(MOD-sp4): 19.0 ml/m2 EDV(MOD-sp4): 122.0 ml EDV(sp4-el): 131.1 ml LVAs ap4: 23.9 cm2 LVLs ap4: 7.1 cm ESV(MOD-sp4): 66.8 ml ESV(sp4-el): 68.5 ml EF(MOD-sp4): 45.2 % EF(sp4-el): 47.8 % LA dimension(2D): 3.5 cm ECHO/Echo Limited w/Contrast Interpretation Summary Normal LV size. The estimated ejection fraction is 48 %. Contrast injection was performed. The study was technically difficult. Ordering Physician: Wil Daley Referring Physician: XIN FLYNN Performed By: Emily Cruz RDCS
== END | disposition home or self-care (01) ==
LOC: CVS 12:38
PROVIDERS: PCP Nurse Practitioner Family; Referring Provider Internal Medicine Cardiovascular Disease; Visit Provider Internal Medicine Cardiovascular Disease
DX: I42.8 Other cardiomyopathies (principal)
CPT/HCPCS: 93308; Q9957; A4216; C8924

== ENCOUNTER → 2024-12-24 | Outpatient (CLI) | payer BC, SELFPAY ==
[2024-12-24 12:28] LABS: Color, Urine Yellow (Yellow); Glucose, Dipstick Normal (Normal); Ketone-Dipstick Negative (Negative); Leukocyte Esterase-Dipstick Negative /ul (Negative); Nitrite-Dipstick Negative (Negative); Occult Blood-Urine Negative /ul (Negative); Protein-Dipstick Negative (Negative); Specific Gravity, Urine 1.010 (1.002-1.030); Urine Bilirubin Dipstick Negative (Negative)
[2024-12-24 12:44] LABS: Hematocrit 43.4 % (40-54); Hemoglobin 14.9 g/dL (13.0-16.5); Immature Granulocytes Count 0.050 X10^3/uL (0.0-0.0); Mean Corp Hgb Conc 34.3 g/dL (32-36); Mean Corpuscular Volume 92.7 fL (80-94); Mean Platelet Vol. 12.4 fl (6.2-12.0); NRBC Flagged by Analyzer 0 % (0-5); Platelet Count 180 K/mm3 (150-450); RBC Distribution Width CV 12.1 % (11.6-14.6); RBC Distribution Width SD 40.9 fl (35.1-43.9); Red Blood Count 4.68 M/mm3 (4.6-6.2); White Blood Count 7.2 K/mm3 (4.4-11.0)
[2024-12-24 13:29] LABS: AST(SGOT) 24 U/L (<=37); Alanine Aminotransfer ALT/SGPT 43 U/L (<=46); Albumin, Serum 4.5 g/dL (3.5-5.0); Alkaline Phosphatase 80 U/L (40-129); Anion Gap 10 (5-15); BUN 13 mg/dL (4-19); BUN/Creat Ratio 13.8 RATIO (10-20); Calcium,Total 9.9 mg/dL (7.6-11.0); Carbon Dioxide 25.3 mmol/L (21.0-32.0); Chloride 103 mmol/L (98-108); Cholesterol 221 mg/dL (<=200); Globulin 2.6 g/dL (2.2-4.2); Glucose 99 mg/dL (70-99); Low Density Lipoprotein Calc. 134 mg/dL; Potassium 4.4 mmol/L (3.3-5.1); Triglycerides 167 mg/dL; Very Low Density Lipoprotein 33 mg/dL (5-40); cholesterol:hdl ratio screen 4.09
[2024-12-24 22:37] LABS: Creatinine, Urine (random) 74.60 mg/dL (39.00-259.00); Microalbumin,Random Urine < 12.0 mg/L (<20 mg/L)
[2024-12-30 15:08] LABS: Testosterone, % Free 2.57 % (1.50-4.20); Testosterone, Free 3.93 ng/dL (5.00-21.00)
== END | disposition home or self-care (01) ==
PROVIDERS: PCP Nurse Practitioner Family; Referring Provider Nurse Practitioner Family; Visit Provider Nurse Practitioner Family
DX: E78.5 Hyperlipidemia, unspecified (principal); R53.83 Other fatigue; R73.01 Impaired fasting glucose; E03.9 Hypothyroidism, unspecified; R03.0 Elevated blood-pressure reading, without diagnosis of hypertension
CPT/HCPCS: 36415; 80053; 80061; 81002; 82043; 82570; 83036; 83525; 84402; 84403; 84439; 84443; 85025